=== PATIENT | male | born 1990 | race Hispanic/Latino ===

== ENCOUNTER 2020-04-08 15:00 | Outpatient (RCR) | payer BC, SELFPAY ==
--- NOTE | 2020-01-24 13:48 | PTOPEVAL ---
PHYSICAL THERAPY EVALUATION AND PLAN OF CARE Thank you for referring Mohinder Rasmussen to [facility].? The patient is scheduled to be seen for therapy? 1x/week for 4-8 weeks. Please review, sign, date and return this plan of care WILBUR. I agree with and certify that the following plan of care is medically necessary. 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 States that there is a tightness and pulling in mid back on the right and then pain in left lower back and goes into the hip. reports greater severity of right side rib pain as time has gone on and left hip glute area is worsening. Notes he is able to pop his right hip but not the left, pops his neck and knuckles Self Report Pain Assessment Lower Spine, Lumbar Reported Pain Level 5 Pain Description Aching,Pressure,Pulling Pain Frequency Chronic,Continuous Lowest Pain Intensity 3 Greatest Pain Intensity 9 Other Pain Aggravating Factors general activity, nothing specific Pain Behaviors None Pain Relief Interventions Used By Medication Patient Pain Score Pain Score 5: Self Report Cervical and Lumbar ROM Lumbar ROM Lumbar Flexion (0-90) 60 Query Text:Active in Degrees Lumbar Extension (0-40) 15 Query Text:Active in Degrees Lateral Rotation Right (0-45) 30 Query Text:Active in Degrees Lateral Rotation Left (0-45) 15 Query Text:Active in Degrees Lumbar Comments return from flexion: thoracic spine abberent movement with left flexion right; extennsion: hinge at L4 Cervical and Lumbar Muscle Testing Lumbar Strength Upper Abdominal Strength 3+Fair+ Lower Abdominal Strength 3 Fair Lower Extremity Muscle Strength Testing General Lower Extremity Strength Gross Lower Extremity Strength right unilateral heel raises: x11
--- NOTE | 2020-02-08 15:03 | PCPTNOTE ---
Brijesh was able to be reached by phone call today to schedule appointments. Since we were unable to reach him until today, we will extend the plan of care an additional two weeks in order to complete 4 weeks of physical therapy treatment visits.
--- NOTE | 2020-02-26 13:15 | PCPTNOTE ---
Patient called & cancelled scheduled appointment this date due to not feeling well.
--- NOTE | 2020-03-11 17:00 | PTOPEVAL ---
PHYSICAL THERAPY PROGRESS REPORT Thank you for referring Mohinder Rasmussen to [facility] We will be continuing previously established plan to complete 8 weeks of physical therapy 1x/week. We have 4 more weeks. Please review, sign, date and return this plan of care WILBUR. I agree with and certify that the following plan of care is medically necessary. 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 States that there is a tightness and pulling in mid back on the right and then pain in left lower back and goes into the hip. reports greater severity of right side rib pain as time has gone on and left hip glute area is worsening. Notes he is able to pop his right hip but not the left, pops his neck and knuckles Self Report Pain Assessment Lower Spine, Lumbar Reported Pain Level 5 Pain Description Aching,Pressure,Pulling Pain Frequency Chronic,Continuous Lowest Pain Intensity 3 Greatest Pain Intensity 9 Other Pain Aggravating Factors general activity, nothing specific Pain Behaviors None Lumbar ROM Lumbar Flexion (0-90) 60 Query Text:Active in Degrees Lumbar Extension (0-40) 15 Query Text:Active in Degrees Lateral Rotation Right (0-45) 30 Query Text:Active in Degrees Lateral Rotation Left (0-45) 20 Query Text:Active in Degrees Lumbar Comments no aberrant movement noted with flexion this date; extension: hinge at L4 Lumbar Strength Upper Abdominal Strength 3+Fair+ Lower Abdominal Strength 3 Fair Hip Strength Right Hip Flexion Strength 5 Normal Hip Extension Strength 4 Good Hip Abduction Strength 4+ Good + Left Hip Flexion Strength 5 Normal Hip Extension Strength 4 Good Hip Abduction Strength 4 Good Knee Strength Bilateral Knee Flexion Strength 5 Normal Knee Extension Strength 5 Normal Knee Strength Comments right unilateral heel raises: 04/28 left unilateral heel raises: 12/27 Muscle Length Testing Piriformis w/Hip Flexion >90 D
--- NOTE | 2020-03-21 13:57 | PCPTNOTE ---
Patient called & cancelled scheduled appointment this date due to possible covid exposure.
--- NOTE | 2020-03-25 16:16 | PCPTNOTE ---
Patient called & cancelled scheduled appointment for 03/26/2020 due to COVID quarantine.
--- NOTE | 2020-04-02 15:39 | PCPTNOTE ---
Patient did not show up for scheduled appointment this date. Called and reminded patient of attendance policy.
--- NOTE | 2020-04-08 15:25 | PCPTNOTE ---
Patient did not show up for scheduled appointment this date.
--- NOTE | 2020-04-08 15:25 | PCPTNOTE ---
PHYSICAL THERAPY DISCHARGE NOTE Attending Provider: Liborio Trotter MD Patient:Mohinder Rasmussen Date of :1990 Patient has not returned for any further treatments since 03/11/2020, therefore he will be discharged at this time due to poor attendance. Patient?s initial visit was on 01/24/2020 and had a total of 4 visits. We will be happy to work with him again in the future if he requires further therapy. The goals have been partially met. Thank you for referring this patient to [facility]. Please review, sign, date and return this discharge summary WILBUR. I have been updated about the patient's current status and I agree with discharge from the above service at this time. Referring Physician Date
== END 2020-04-09 13:06 | disposition home or self-care (01) ==
LOC: ANHPT 15:00
PROVIDERS: PCP Emergency Medicine; Visit Provider Emergency Medicine
DX: M54.5 Low back pain (principal)
CPT/HCPCS: 97110; 97140; 97161

== ENCOUNTER → 2020-05-29 16:40 | Outpatient (CLI) | payer BC, SELFPAY ==
--- NOTE | ~2020-05-29 | XR_ITS ---
EXAMINATION: XR lumbar spine 2-3V DATE: 05/29/2020 16:59 INDICATION: Low back pain TECHNIQUE: AP and lateral views of the lumbar spine were obtained. COMPARISON: 12/28/2008 FINDINGS: There are 2 mm of retrolisthesis of L5 on S1. The vertebral body heights and intervertebral disc spaces are maintained. There is no fracture. IMPRESSION: 1. Mild lumbar spondylosis without acute findings. Reviewed, dictated and finalized at location A. R [employer]W MEMBER
== END ==
PROVIDERS: PCP Emergency Medicine; Visit Provider Emergency Medicine
DX: M47.816 Spondylosis without myelopathy or radiculopathy, lumbar region (principal)
CPT/HCPCS: 72100

== ENCOUNTER 2021-06-03 15:19 | Outpatient (CLI) | payer OTHER, SELFPAY ==
--- NOTE | 2021-06-03 15:30 | ECG_ITS ---
Measurements Intervals [place] Rate: 118 P: 63 TX: 158 QRS: 11 QRSD: 98 T: 71 QT: 366 QTc: 514 Interpretive Statements SINUS TACHYCARDIA ST ELEVATION IN ANTOLAT/INF LEADS- CONSIDER EARLY REPOLARIZATION OR PERICARDITIS POOR R WAVE PROGRESSION, ANTERIOR LEADS BASELINE ARTIFACT- I, II, AVR, AVL, AVF ABNORMAL ECG Electronically Signed On 06-03-2021 16:21:08 COSMETOLOGY INSTRUCTOR by Heron Davidson D.O.
[2021-06-03 16:07] LABS: Alanine Aminotransferase 43 U/L (4-50); Albumin Level 5.3 g/dL (3.5-5.1); Alkaline Phosphatase 51 U/L (38-126); Amylase 74 U/L (30-110); Aspartate Amino Transferase 35 U/L (17-59); Bilirubin,Total 0.7 mg/dL (0.2-1.3); Lipase 165 U/L (23-300)
[2021-06-03 16:09] LABS: Hematocrit 43.1 % (42.0-52.0); Hemoglobin 14.5 g/dL (14.0-18.0)
[2021-06-03 16:10] LABS: Anion Gap 13 mmol/L (8-16); Blood Urea Nitrogen 23 mg/dL (9-20); Carbon Dioxide 25 mmol/L (22-30); Chloride 100 mmol/L (98-107); Estimated Glomerular Filt Rate 59; Glucose 144 mg/dL (65-110); Potassium 3.6 mmol/L (3.4-5.0); Sodium 138 mmol/L (137-145)
== END 2021-06-03 15:20 | disposition home or self-care (01) ==
LOC: ANHSURGERY 15:23
PROVIDERS: Anesthesiology; PCP Family Medicine; Visit Provider Surgery
DX: K80.20 Calculus of gallbladder without cholecystitis without obstruction (principal); E11.9 Type 2 diabetes mellitus without complications; E78.5 Hyperlipidemia, unspecified; I10 Essential (primary) hypertension; D64.9 Anemia, unspecified; Z01.818 Encounter for other preprocedural examination; R00.0 Tachycardia, unspecified
CPT/HCPCS: 36415; 80048; 80076; 82150; 83690; 85014; 85018; 86850; 86900; 86901; 93005

== ENCOUNTER 2021-08-01 11:36 | Outpatient (CLI) | payer OTHER, SELFPAY ==
--- NOTE | ~2021-08-01 | XR_ITS ---
XR lumbar spine min 4V DATE: 08/01/2021 12:16 INDICATION: Back pain TECHNIQUE: AP, lateral, coned lateral lumbosacral and bilateral oblique views COMPARISON: None FINDINGS: Normal alignment of the lumbar spine. No fracture or bone destruction, spondylolysis or spo ndylolisthesis. The included lower thoracic and lumbar pedicles are intact. Lumbar and lumbosacral in terspaces are well preserved. The sacroiliac joints are intact. IMPRESSION: Negative Reviewed, dictated and finalized at location A. IMPRESSION: Negative
--- NOTE | ~2021-08-01 | XR_ITS ---
EXAMINATION: HAND-NETTE ARTHRITIS 3+VIEWS DATE: 08/01/2021 12:16 INDICATION: Unspecified osteoarthritis at the bilateral hands. TECHNIQUE: Posteroanterior, lateral, and oblique views of the left and of the right hands as well as a ballcatchers view of both hands were obtained. COMPARISON: None. FINDINGS: Alignment is normal at the bilateral hands and wrists. No fracture. Joint spaces are normal with no e rosions or osteophytosis. Soft tissues are unremarkable. IMPRESSION: 1. Normal bilateral hand radiographs. Reviewed, dictated and finalized at location A.
--- NOTE | ~2021-08-01 | XR_ITS ---
XR sacroiliac joints min 3V DATE: 08/01/2021 12:16 INDICATION: Back pain TECHNIQUE: AP and bilateral oblique views COMPARISON: None FINDINGS: No fracture or dislocation. No erosive change or ankylosis. IMPRESSION: Negative Reviewed, dictated and finalized at Location A. Reviewed, dictated and finalized at location A. IMPRESSION: Negative
== END 2021-08-01 11:37 | disposition home or self-care (01) ==
PROVIDERS: PCP Family Medicine; Visit Provider Internal Medicine
DX: M19.90 Unspecified osteoarthritis, unspecified site (principal)
CPT/HCPCS: 72110; 72202; 73130

== ENCOUNTER 2021-08-10 09:33 | Outpatient (CLI) | payer OTHER, SELFPAY ==
--- NOTE | ~2021-08-10 | MR_ITS ---
EXAMINATION: MR sacroiliac jts wo/w con DATE: 08/10/2021 11:18 INDICATION: Unspecified osteoarthritis, unspecified site. Low back pain. TECHNIQUE: Magnetic resonance imaging (MRI) of the sacroiliac joints was performed without and with 1 9 mL MultiHance intravenous contrast. Sequences included sagittal PD-weighted FS FSE, coronal oblique T1-weighted FSE, T2-weighted FS FSE, and T2-weighted FSE, axial T1-weighted FSE, T1-weighted FS FSE, and T2-weighted FS FSE, and postcontrast axial and coronal oblique T1-weighted FS FSE. COMPARISON: Sacroiliac joint radiographs 08/01/2021 FINDINGS: Bone alignment is normal. No fracture. There is mild osteoarthritis of the sacroiliac joint s including marginal osteophytes. IMPRESSION: 1. Mild osteoarthritis of the sacroiliac joints. No evidence of inflammatory arthropathy. Reviewed, dictated and finalized at location E. IMPRESSION: 1. Mild osteoarthritis of the sacroiliac joints. No evidence of inflammatory ar thropathy.
--- NOTE | ~2021-08-10 | MR_ITS ---
EXAMINATION: MR lumbar spine wo/w con DATE: 08/10/2021 11:19 INDICATION: Unspecified osteoarthritis, unspecified site. Low back pain. TECHNIQUE: Magnetic resonance imaging (MRI) of the lumbar spine was performed without and with 19 mL MultiHance intravenous contrast. Sequences included sagittal T2-weighted FSE, sagittal T2-weighted FS FSE, and sagittal and axial T1-weighted FSE. Postcontrast sequences included axial T2-weighted FSE a nd axial and sagittal T1-weighted FS FSE. COMPARISON: Lumbar spine radiographs 08/01/2021 FINDINGS: Bone alignment is normal. Vertebral body heights are normal. There is mildly decreased disc height at L5-S1. The distal spinal cord signal intensity is normal. The conus medullaris is at T12-L 1. The following disc levels are specifically discussed: L1-L2: The disc does not extend beyond the endplate margin. There is mild bilateral facet joint osteo arthritis. There is no neural foraminal stenosis. There is no central canal stenosis. L2-L3: The disc does not extend beyond the endplate margin. There is mild left facet joint osteoarthr itis. There is no neural foraminal stenosis. There is no central canal stenosis. L3-L4: The disc does not extend beyond the endplate margin. There is mild bilateral facet joint osteo arthritis. There is no neural foraminal stenosis. There is no central canal stenosis. L4-L5: The disc does not extend beyond the endplate margin. There is mild bilateral facet joint osteo arthritis. There is no neural foraminal stenosis. There is no central canal stenosis. L5-S1: The disc is bulging and has an annular fissure. There is mild bilateral facet joint osteoarthr itis. There is mild bilateral neural foraminal stenosis. There is mild central canal stenosis. IMPRESSION: 1. Mild lumbar spondylosis. Reviewed, dictated and finalized at location E. IMPRESSION: 1. Mild lumbar spondylosis.
[2021-08-10 10:14] LABS: Estimated Glomerular Filt Rate 59
== END 2021-08-10 09:34 | disposition home or self-care (01) ==
LOC: ANHIMG 09:40
PROVIDERS: PCP Family Medicine; Visit Provider Internal Medicine
DX: M19.90 Unspecified osteoarthritis, unspecified site (principal); M47.896 Other spondylosis, lumbar region; M53.3 Sacrococcygeal disorders, not elsewhere classified
CPT/HCPCS: 72158; 72197; A9577

== ENCOUNTER 2022-09-18 14:11 | Emergency (ER) | payer OTHER, SELFPAY ==
--- NOTE | ~2022-09-18 | CT_ITS ---
EXAMINATION: CT abdomen pelvis w con DATE: 09/18/2022 16:48 INDICATION: Right abdominal pain. Nausea. TECHNIQUE: Computed tomography (CT) of the abdomen and pelvis was performed with 100 mL Omnipaque 350 intravenous contrast. Automated exposure control and iterative reconstruction technique were employe d. The dose-length product was 742.72 mGy-cm. COMPARISON: None. FINDINGS: The visualized portions of the lung bases demonstrate minimal atelectasis. No pleural effus ion. The heart size is normal. No pericardial effusion. The liver, gallbladder, spleen, adrenal gland s, and kidneys are normal. There is fat stranding around the pancreas, consistent with acute intersti tial pancreatitis. The pancreas enhances throughout. There are no dilated loops of bowel. The appendi x is normal. There are no pathologically enlarged lymph nodes. There is no free intraperitoneal fluid . There is mild subcutaneous fat stranding in right anterior abdominal wall, consistent with inflamma tion. There is mild thoracic and lumbar spondylosis. IMPRESSION: 1. Acute interstitial pancreatitis. Reviewed, dictated and finalized at location E.
[2022-09-18 14:13] VITALS: BP 137/92; PULSE 110; RESP 15; TEMP 36.7; O2SAT 100
[2022-09-18 14:38] LABS: Appearance Urine Clear (Clear); Bacteria Urine None Seen /hpf; Bilirubin Urine Negative (Negative); Blood Urine Negative (Negative); Color Urine Yellow (Yellow); Glucose Urine UA 3+ mg/dL (Negative); Ketones Urine 3+ mg/dL (Negative); Leukocyte Esterase Ur Negative LEU/UL (Negative); Nitrate Urine Negative (Negative); Non Pathogenic Casts 0-2; Protein Urine Trace mg/dL (Negative); RBC Urine 0-2 /hpf (0-2); Squamous Epithelial Cell Urine None seen /hpf (Few); Urobilinogen Urine 0.2 mg/dL (<2.0); WBC Urine 0-5 /hpf
[2022-09-18 14:47] LABS: Specific Grav Ur 1.044 (1.001-1.035)
[2022-09-18 14:48] LABS: Add Urine Microscopic? YES
--- NOTE | 2022-09-18 15:17 | ED.ABDPAIN ---
HPI - Abdominal Pain General Chief Complaint: Abdominal Pain Stated Complaint: abd pain Time Seen by Provider: 09/18/22 14:44 History of Present Illness HPI narrative: 32-year-old male with a history of diabetes, hypertension, dyslipidemia, depression and anxiety, hypothyroidism presents to the emergency room for evaluation of right upper quadrant abdominal pain began this morning. States pain is associated with couple of episodes of nonbilious nonbloody emesis, abdominal bloating, frequent flatulence and belching. Denies diarrhea or constipation. Patient states that he has a history of gallstones and pancreatitis. States is not engaged in drinking alcohol in almost 3 months. Related Data Home Medications Medication Instructions Recorded Confirmed fenofibrate micronized 134 mg 134 mg PO DAILY 04/17/19 09/04/21 capsule metformin 500 mg tablet 1,000 mg PO BID 04/17/19 09/04/21 diclofenac sodium 100 mg 100 mg PO DAILY 04/09/21 09/04/21 tablet,extended release 24 hr levothyroxine 50 mcg capsule 50 mcg PO DAILY 04/09/21 09/04/21 liraglutide 0.6 mg/0.1 mL (18 mg/3 0.6 mg subcut DAILY 04/09/21 09/04/21 mL) subcutaneous pen injector (Victoza 2-Sahvin) rosuvastatin 40 mg tablet 40 mg PO DAILY 04/09/21 09/04/21 alprazolam 0.5 mg tablet 0.5 mg PO BID PRN Anxiety 06/02/21 09/04/21 dextroamphetamine-amphetamine 20 20 mg PO BID 06/02/21 09/04/21 mg tablet (Adderall) ferrous sulfate 325 mg (65 mg 325 mg PO DAILY 06/02/21 09/04/21 iron) tablet irbesartan 150 mg tablet 150 mg PO DAILY 06/02/21 09/04/21 multivitamin 1 tablet PO DAILY 06/02/21 09/04/21 fluoxetine 20 mg capsule (Prozac) 20 mg PO DAILY 08/01/21 09/04/21 rosuvastatin 20 mg tablet (Crestor) 20 mg PO DAILY 08/01/21 09/04/21 trazodone 100 mg tablet 100 mg PO QHS PRN 08/01/21 09/04/21 Allergies Allergy/AdvReac Type Severity Reaction Status Date / Time No Known Allergies Allergy Verified 09/18/22 14:46 Review of Systems Review of Systems: CONSTITUTIONAL: Denies fever, chills, or sweats. EYES: Denies visual changes, redness, or discharge. ENT: Denies rhinorrhea, congestion, sore throat, or otalgia. CARDIOVASCULAR: Denies chest pain, palpitations, or edema. RESPIRATORY: Denies cough or dyspnea. GASTROINTESTINAL: Per HPI GENITOURINARY: Denies dysuria or hematuria. SKIN: Denies rash or itching. MUSCULOSKELETAL: Denies back pain, joint pain, or myalgia. NEUROLOGIC: Denies headache, numbness, dizziness, or weakness. PSYCHIATRIC: Denies anxiety or depression. [facility] Past Medical History Medical History Abnormal immunological finding in serum Degenerative joint disease (DJD) of lumbar spine Diabetes High cholesterol Hypertension Hypothyroid Inflammatory arthritis (~2005) Surgical History Surgical History H/O Achilles tendon repair History of surgical removal of ganglion cyst [place] teeth extracted Family History Family History Grandparent Diabetes mellitus Social History Social History Smoking status: Never smoker Alcohol intake: current Drinks per week: 4 Substance use: current Substance use type: marijuana Living arrangements: alone Occupation/Education: occupation 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 HEAD: Normocephalic, atraumatic. EYES: Conjunctivae normal, PERRLA and EOMI. CHEST: Clear to auscultation. No respiratory distress. No wheezes rales or rhonchi. HEART: Regular rate and rhythm. No murmur heard. Normal peripheral pulses. ABDOMEN: Soft, nontender, nondistended, normal active bowel s
[2022-09-18 15:18] LABS: Basophils Absolute Auto 0.1 K/mm3 (0.0-0.1); Basophils Percent Auto 0.7 % (0.2-1.2); Eosinophils Absolute Auto 0.6 K/mm3 (0-0.3); Eosinophils Percent Auto 6.2 % (0-4.4); Hematocrit 42.4 % (42.0-52.0); Hemoglobin 14.3 g/dL (14.0-18.0); Immature Granulocyte Absolute 0.03 K/mm3 (0.00-0.031); Immature Granulocyte Percent A 0.3 % (0-0.5); Lymphocytes Absolute Auto 1.43 K/mm3 (0.9-3.2); Lymphocytes Percent Auto 14.1 % (18.3-44.2); Mean Corpuscular HGB Conc 33.7 g/dl (32-36); Mean Corpuscular Hemoglobin 25.5 pg (26-34); Mean Corpuscular Volume 75.6 fl (80-100); Mean Platelet Volume 9.2 fl (7.4-10.4); Monocytes Absolute Auto 0.9 K/mm3 (0.1-0.6); Monocytes Percent Auto 9.2 % (2.6-8.5); Neutrophils Absolute Auto 7.1 K/mm3 (1.3-6.7); Neutrophils Percent Auto 69.5 % (45.5-73.1); Nucleated Red Blood Cells Absolute Auto 0.1 K/mm3 (0.0-0.012); Nucleated Red Blood Cells Perc 0.6 % (0.0-0.2); Platelet Count Result 317 k/mm3 (150-375); Red Blood Count 5.61 M/mm3 (4.6-6.20); Red Cell Distribution Width 13.2 % (11.5-14.5); White Blood Count 10.2 K/mm3 (4.5-10.0)
[2022-09-18] MEDS: DICYCLOMINE HCL INJ 20 MG/2 ML VIAL IM (15:34)
[2022-09-18] MEDS: SODIUM CHLORIDE 0.9% IV 1,000 ML 999 ML IV CONT ×2 (15:34→17:13)
[2022-09-18] MEDS: ONDANSETRON INJ 4 MG/2 ML VIAL IV PUSH (15:34)
[2022-09-18 16:40] LABS: Estimated CRCL calculation 312 ml/min; Estimated Glomerular Filt Rate > 60
[2022-09-18 16:54] LABS: Alanine Aminotransferase 21 U/L (6-50); Albumin Level 3.9 g/dL (3.5-5.1); Alkaline Phosphatase 52 U/L (38-126); Anion Gap 14 mmol/L (8-16); Aspartate Amino Transferase 36 U/L (17-59); Blood Urea Nitrogen 12 mg/dL (9-20); Calcium 8.2 mg/dL (8.4-10.2); Carbon Dioxide 20 mmol/L (22-30); Chloride 99 mmol/L (98-107); Estimated CRCL calculation 131 ml/min; Estimated Glomerular Filt Rate > 60; Glucose 257 mg/dL (65-110); Lipase 616 U/L (23-300); Potassium 4.9 mmol/L (3.4-5.0); Sodium 133 mmol/L (137-145)
[2022-09-18] MEDS: fentaNYL CITRATE INJ (*CRX) 100 MCG/2 ML VIAL 50 MCG IV PUSH (17:13)
== END 2022-09-18 18:01 | disposition home or self-care (01) ==
PROVIDERS: Emergency Medicine; Emergency Provider Nurse Practitioner Family; PCP Family Medicine
DX: K85.00 Idiopathic acute pancreatitis without necrosis or infection (principal); I10 Essential (primary) hypertension; E11.9 Type 2 diabetes mellitus without complications; E78.5 Hyperlipidemia, unspecified; E03.9 Hypothyroidism, unspecified; M47.816 Spondylosis without myelopathy or radiculopathy, lumbar region; M19.90 Unspecified osteoarthritis, unspecified site; F32.A Depression, unspecified; F41.9 Anxiety disorder, unspecified; Z79.84 Long term (current) use of oral hypoglycemic drugs
CPT/HCPCS: 36415; 74177; 80053; 81001; 83690; 85025; 96361; 96372; 96374; 96375; 99284; J0500; J2405; J3010; J7030; Q9967

== ENCOUNTER 2024-11-29 18:53 | Emergency (ER) | payer OTHER, SELFPAY ==
[2024-11-29 19:03] VITALS: BP 130/78; PULSE 92; RESP 16; TEMP 36.6; O2SAT 100
--- NOTE | 2024-11-29 19:08 | ED_ITS ---
HPI - General Adult General Chief complaint: Skin/Abscess/Foreign Body Stated complaint: Rash Source: patient Mode of arrival: ambulatory Limitations: no limitations History of Present Illness HPI narrative: Pt is a 34 y/o presenting with c/o pruritic rash. Pt reports pruritic rash initially to R. ankle 1 week ago, has since noticed same rash to alejandra. lower extremities, alejandra. upper extremities. Reports suspected contact with poison m[place] while at dog park. Does have several dogs who sleep with him. He has not given his dogs a bath since onset, he has not washed his bedding since onset. No similar rash among household members. No new skin hygiene products, foods, medications, recent travel. No additional complaints. Related Data Home Medications ?Medication ?Instructions ?Recorded ?Confirmed ?Last Taken ?Type fenofibrate micronized 134 mg 134 mg PO DAILY 04/17/19 09/04/21 Unknown History capsule metformin 500 mg tablet 1,000 mg PO BID 04/17/19 09/04/21 Unknown History diclofenac sodium 100 mg 100 mg PO DAILY 04/09/21 09/04/21 Unknown History tablet,extended release 24 hr levothyroxine 50 mcg capsule 50 mcg PO DAILY 04/09/21 09/04/21 Unknown History liraglutide 0.6 mg/0.1 mL (18 mg/3 0.6 mg subcut DAILY 04/09/21 09/04/21 Unknown History mL) subcutaneous pen injector (Victoza 2-Ashvin) rosuvastatin 40 mg tablet 40 mg PO DAILY 04/09/21 09/04/21 Unknown History alprazolam 0.5 mg tablet 0.5 mg PO BID PRN Anxiety 06/02/21 09/04/21 Unknown History dextroamphetamine-amphetamine 20 20 mg PO BID 06/02/21 09/04/21 Unknown History mg tablet (Adderall) ferrous sulfate 325 mg (65 mg 325 mg PO DAILY 06/02/21 09/04/21 Unknown History iron) tablet irbesartan 150 mg tablet 150 mg PO DAILY 06/02/21 09/04/21 Unknown History multivitamin 1 tablet PO DAILY 06/02/21 09/04/21 Unknown History fluoxetine 20 mg capsule (Prozac) 20 mg PO DAILY 08/01/21 09/04/21 Unknown History rosuvastatin 20 mg tablet (Crestor) 20 mg PO DAILY 08/01/21 09/04/21 Unknown History trazodone 100 mg tablet 100 mg PO QHS PRN 08/01/21 09/04/21 Unknown History Allergies Allergy/AdvReac Type Severity Reaction Status Date / Time No Known Allergies Allergy Verified 09/18/22 14:46 Review of Systems Review of Systems: CONSTITUTIONAL: Denies body aches, fever, chills, or sweats. EYES: Denies visual changes, redness, or discharge. ENT: Denies rhinorrhea, congestion, sore throat, or otalgia. CARDIOVASCULAR: Denies chest pain, palpitations, or edema. RESPIRATORY: Denies cough or dyspnea. GASTROINTESTINAL: Denies abdominal pain, nausea, vomiting, or diarrhea. GENITOURINARY: Denies dysuria or hematuria. SKIN: Reports pruritic rash MUSCULOSKELETAL: Denies back pain, joint pain, or myalgia. NEUROLOGIC: Denies headache, numbness, tingling, or weakness. PSYCH: Denies depression or anxiety. 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) Hypertension Hypothyroid High cholesterol Diabetes Surgical History Surgical History History of surgical removal of ganglion cyst H/O Achilles tendon repair [place] teeth extracted Family History Family History Grandparent Diabetes mellitus Social History Social History Smoking status: Never smoker Alcohol intake: current Drinks per week: 4 Substance use: current Substance use type: marijuana Living arrangements: alone Occupation/Education: occupation 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 HEAD: Normocephalic, atraumatic. EYES: EOMI. No redness or drainage. Conjunctivae normal. ENT: Mucous membranes pink and moist. NECK: Normal AROM. Supple. CHEST: No respiratory distress. HEART: Regular rate Normal peripheral pulses. EXTREMITIES: Normal range of motion. No edema. SKIN: Warm, dry. Erythematous, papulovesicular eruption noted to alejandra. lower legs, alejandra. upper extremities--hands and feet spared. no evidence of secondary bacterial skin infection. Capillary refill normal. Normal skin turgor. NEURO: No focal deficits. Alert and oriented x3. Gait steady. PSYCH: Normal affect. No signs of depression or anxiety. Course Course Level of Care: Express Care Visit Vital Signs Vital signs: Vital Signs Temperature 97.8 F 11/29/24 19:03 Pulse Rate 92 11/29/24 19:03 Respiratory Rate 16 11/29/24 19:03 Blood Pressure 130/78 11/29/24 19:03 Pulse Oximetry 100 11/29/24 19:03 Oxygen Delivery Room Air 11/29/24 19:03 Temperature 97.8 F 11/29/24 19:03 Pulse Rate 92 11/29/24 19:03 Respiratory Rate 16 11/29/24 19:03 Blood Pressure 130/78 11/29/24 19:03 Pulse Oximetry 100 11/29/24 19:03 Oxygen Delivery Room Air 11/29/24 19:03 Medical Decision Making Vital Signs Vital Signs: Vital Signs Temperature 97.8 F 11/29/24 19:03 Pulse Rate 92 11/29/24 19:03 Respiratory Rate 16 11/29/24 19:03 Blood Pressure 130/78 11/29/24 19:03 Pulse Oximetry 100 11/29/24 19:03 Oxygen Delivery Room Air 11/29/24 19:03 Temperature 97.8 F 11/29/24 19:03 Pulse Rate 92 11/29/24 19:03 Respiratory Rate 16 11/29/24 19:03 Blood Pressure 130/78 11/29/24 19:03 Pulse Oximetry 100 11/29/24 19:03 Oxygen Delivery Room Air 11/29/24 19:03 Discharge Plan Discharge Clinical Impression: Contact dermatitis Qualifiers: Contact dermatitis type: allergic Contact dermatitis trigger: non-food plants Qualified Code(s): L23.7 - Allergic contact dermatitis due to plants, except food Patient Disposition: Home Condition: Stable Instructions: Micky Hair (ED) Additional Instructions: Monitor your blood sugar closely while taking the prednisone. Go straight to ER should your symptoms become worse or should any new symptoms develop Patient Language: [place] Prescriptions: New prednisone 20 mg tablet 20 mg PO DAILY Qty: 18 0RF Rx Instructions: take 3 tabs x 3 days then 2 tabs x 3 days then 1 tab x 3 days No Action fenofibrate micronized 134 mg capsule 134 mg PO DAILY metformin 500 mg tablet 1,000 mg PO BID fluoxetine [Prozac] 20 mg capsule 20 mg PO DAILY trazodone 100 mg tablet 100 mg PO QHS PRN rosuvastatin [Crestor] 20 mg tablet 20 mg PO DAILY diclofenac sodium 100 mg tablet extended release 24 hr 100 mg PO DAILY Victoza 2-Ashvin 0.6 mg/0.1 mL (18 mg/3 mL) pen injector 0.6 mg subcut DAILY levothyroxine 50 mcg capsule 50 mcg PO DAILY rosuvastatin 40 mg tablet 40 mg PO DAILY multivitamin Tablet 1 tablet PO DAILY alprazolam 0.5 mg Tablet 0.5 mg PO BID PRN (Reason: Anxiety) ferrous sulfate 325 mg (65 mg iron) Tablet 325 mg PO DAILY dextroamphetamine-amphetamine [Adderall] 20 mg Tablet 20 mg PO BID irbesartan 150 mg Tablet 150 mg PO DAILY ondansetron 4 mg tablet,disintegrating 4 mg PO Q8H Qty: 20 0RF hydrocodone-acetaminophen 5-325 mg tablet 1 tablet PO Q6H PRN (Reason: pain) Qty: 20 0RF Follow-up/Referrals: Tong,Felicitas Bauer NP [Primary Care Provider] - 11/29/24 Time of Disposition: 19:30
== END 2024-11-29 19:50 | disposition home or self-care (01) ==
PROVIDERS: Emergency Provider Registered Nurse; PCP Nurse Practitioner Family
DX: L23.7 Allergic contact dermatitis due to plants, except food (principal); I10 Essential (primary) hypertension; E11.9 Type 2 diabetes mellitus without complications; Z79.84 Long term (current) use of oral hypoglycemic drugs; E78.00 Pure hypercholesterolemia, unspecified; E03.9 Hypothyroidism, unspecified; M19.90 Unspecified osteoarthritis, unspecified site; M47.816 Spondylosis without myelopathy or radiculopathy, lumbar region
CPT/HCPCS: 99213; G0463

== ENCOUNTER 2025-02-19 06:54 | Outpatient (CLI) | payer OTHER, SELFPAY ==
--- NOTE | ~2025-02-19 | MR_ITS ---
EXAMINATION: MR lumbar spine wo con DATE: 02/19/2025 07:22 INDICATION: Other low back pain. Myalgia. TECHNIQUE: Magnetic resonance imaging (MRI) of the lumbar spine was performed without intravenous contrast. Sequences included sagittal T2-weighted FSE, sagittal T2-weighted FS FSE, sagittal T1-weighted FSE, and axial T2-weighted FSE. COMPARISON: Lumbar spine MRI 08/10/2021 FINDINGS: Alignment is normal. There is mild chronic anterior wedging of T12 vertebral body, likely physiologic. There is mildly decreased disc height at L5- S1. The distal spinal cord signal intensity is normal. The conus medullaris is at L1. The following disc levels are specifically discussed: L1-L2: The disc does not extend beyond the endplate margin. There is mild bilateral facet joint osteoarthritis. There is no neural foraminal stenosis. There is no central canal stenosis. L2-L3: The disc does not extend beyond the endplate margin. There is mild bilateral facet joint osteoarthritis. There is no neural foraminal stenosis. There is no central canal stenosis. L3-L4: The disc does not extend beyond the endplate margin. There is mild bilateral facet joint osteoarthritis. There is no neural foraminal stenosis. There is no central canal stenosis. L4-L5: The disc does not extend beyond the endplate margin. There is mild right and moderate left facet joint osteoarthritis. There is no neural foraminal stenosis. There is no central canal stenosis. L5-S1: The disc is bulging and has an annular fissure. There is moderate bilateral facet joint osteoarthritis. There is mild right and moderate left neural foraminal stenosis. There is mild central canal stenosis. IMPRESSION: 1. Moderate left neural foraminal stenosis at L5-S1. Otherwise mild lumbar spondylosis. Reviewed, dictated and finalized at location E. IMPRESSION: 1. Moderate left neural foraminal stenosis at L5-S1. Otherwise mild lumbar spon dylosis.
--- OUTSIDE RECORDS SUMMARY | 2025-02-19 06:57 | XMS_ITS | Encounter Summary ---
Author Organization [facility] Address [address] [place] [address] Phone Care Team Providers Care Preparation Supervisor Canning Name Role Phone Liborio Trotter Primary Care Provider [phone] Encounter Details Date Type Department Care Team (Late st Contact Info) Description 04/23/2021 Telephone [facility] [address] [place] [address] Gavin Mayer MD [address] [place] [address] Social History Tobacco Use Types Packs/Day Years Used Date Smoking Tobacco: Never Smokeless Tobacco: Never Alcohol Use Standard Drinks/Week Comments Not Currently 0 (1 standard drink = 0.6 oz pur e alcohol) 'quit recently' PHQ-2 Answer Date Recorded Total Score - Questions 1-9 0 11/0 09/2020 Education Answer Date Recorded What is the highest level of school you have completed or the highest degree you have received? Master's degree (e.g., MA, MS, Nima, MEd, TECHNICAL PROJECT LEAD, JACKELYN) 05/16/2020 Sex and Gender Information Value Date Recorded Sex Assigned at Not on file Legal Sex Male 1:08 PM PACKAGE HANDLER Gender Identity Not on file Sexual Orientation Not on file documented as of this encounter Miscellaneous Notes * Telephone Encounter - Chasity Kennedy - 04/23/2021 2:13 PM CST PATIENT CALLED AND HE TESTED POSITIVE FOR COVID LAST NIGHT. PATIENT IS RESCHEDULED FROM 04/25 TO 05/16/21. AGE HANDLER documented in this encounter Plan of Treatment Not on file documented as of this encounter Visit Diagnoses Not on filedocumented in this encounter Additional Health Concerns Assessment Noted Time PHQ-9 Depression Total Score: 0 03/14/20 21 9:12 AM CDT documented as of this encounter Care Teams Preparation Supervisor Canning Relationship Specialty Start Date End Date Liborio Trotter [address] [place] [place] [address] PCP - General Family Medicine 06/16/19 documented as of this encounter
--- OUTSIDE RECORDS SUMMARY | 2025-02-19 06:58 | XMS_ITS | Encounter Summary ---
Author Organization [facility] Address [address] [place] [address] Phone Care Team Providers Care Theatrical Dresser Name Role Phone Liborio Trottre Primary Care Provider [phone] Encounter Details Date Type Department Care Team (Late st Contact Info) Description 08/15/2021 Telephone [facility] [address] [place] [address] Gavin Mayer MD [address] [place] [address] Social History Tobacco Use Types Packs/Day Years Used Date Smoking Tobacco: Never Smokeless Tobacco: Never Alcohol Use Standard Drinks/Week Comments Not Currently 0 (1 standard drink = 0.6 oz pur e alcohol) 'quit recently' PHQ-2 Answer Date Recorded Total Score - Questions 1-9 12 11/2021 Education Answer Date Recorded What is the highest level of school you have completed or the highest degree you have received? Master's degree (e.g., MA, MS, Nima, MEd, PULP AND PAPER TESTER, JACKELYN) 05/16/2020 Sex and Gender Information Value Date Recorded Sex Assigned at Not on file Legal Sex Male 1:08 PM EMPLOYMENT ADVISOR Gender Identity Not on file Sexual Orientation Not on file documented as of this encounter Miscellaneous Notes * Telephone Encounter - Chelsea Heller - 08/15/2021 9:59 AM CDT PT HAD AN OFFICE VISIT SCHEDULED, NO SHOW, CALLED PT, LEFT V/M documented in this encounter Plan of Treatment Not on file documented as of this encounter Visit Diagnoses Not on filedocumented in this encounter Additional Health Concerns Assessment Noted Time PHQ-9 Depression Total Score: 12 022 8:53 AM EMPLOYMENT ADVISOR documented as of this encounter Care Teams Theatrical Dresser Relationship Specialty Start Date End Date Liborio Trotter [address] [place] [address] PCP - General Family Medicine 06/16/19 documented as of this encounter
--- OUTSIDE RECORDS SUMMARY | 2025-02-19 06:58 | XMS_ITS | Encounter Summary ---
Author Organization [facility] Address [address] [place] [address] Care Team Providers Care Tissue Recovery Technician Name Role Phone Liborio Trotter MD Primary Care Provider [phone] Encounter Details Date Type Department Care Team (Late st Contact Info) Description 10/16/2021 Lab Requisition [facility] Lab [address] [place] [id number] Chao Farias MD [address] [place] [address] Social History Tobacco Use Types Packs/Day Years Used Date Smoking Tobacco: Never Assessed Sex and Gender Information Value Date Recorded Sex Assigned at Not on file Legal Sex Male 1:30 PM CDT Gender Identity Not on file Sexual Orientation Not on file documented as of this encounter Plan of Treatment Not on file documented as of this encounter Procedures Procedure Name Priority Date/Time Associated Diagnosis Comments DERMATOPATHOLOGY Routine 10/15/2021 12:0 0 AM CDT documented in this encounter Results * DERMATOPATHOLOGY (10/15/2021 12:00 AM CDT) Case Report Dermatopathology Report Case: [id number] Authorizing Provider: Chao Farias MD Collected: 10/15/2021 12:00 AM Ordering Location: [facility] Received: 10/16/2021 01:38 PM Pathologist: Mae Braun MD Specimen: Skin, distal doral penis shaft just left of midline 11:03 AM CDT DERMATOPATHOLOGY LABORATORY Amended Report At the request of the clinician, add R/O Dys nevus to clinical history. 11:03 AM CDT DERMATOPATHOLOGY LABORATORY Final Diagnosis Specimen A. SKIN, distal doral penis shaft just left of midline: MUCOSAL LENTIGO (LABIAL MELANOTIC MACULE) (L81.4) 2 11:03 AM CDT DERMATOPATHOLOGY LABORATORY Amendment electronically signed by Mae Braun MD on 10/20/2021 at 1103 CDT at 1508 CDT Clinical History R/O dys nevus 2 11:03 AM CDT DERMATOPATHOLOGY LABORATORY Gross Description Specimen A: Received is one formalin filled container labeled with the patient's name and designated distal doral penis shaft just left of midline. The specimen consists of a shave biopsy measuring [id number]. Jar 0. 2 11:03 AM CDT DERMATOPATHOLOGY LABORATORY Microscopic Description Specimen A. SKIN, distal doral penis shaft just left of midline: The specimen is taken from a mucocutaneous surface and shows acanthosis and prominent pigmentation in the basal layer. The keratinocytes are mature and there is a minimal increase in melanocytes. 2 11:03 AM CDT DERMATOPATHOLOGY LABORATORY Disclaimer An external and internal positive and negative controls are appropriate for the histochemical, immunohistochemical and immunofluorescence stain(s) in this case (if any), except where stated explicitly. The performance characteristics of the stain(s) cited in this report were developed and its performance characteristic determined by the Dermatopathology Laboratory at [facility], directed by Dr. Kami Schaeffer. These tests need not be, and therefore are not, approved by the [place] Food and Drug Administration. The tests are used for clinical purposes. Billing Codes Specimen Charges Stain Charges 76085 1 2 11:03 AM CDT DERMATOPATHOLOGY LABORATORY Embedded Images 2 11:03 AM CDT DERMATOPATHOLOGY LABORATORY Pathology/Cytolog y TISSUE SPECIMEN FROM SKIN / Unknown 10/15/2021 10/16/2021 1:38 PM CDT Chao Farias MD LAB - PATHOLOGY/CYTOLOGY ORD ERABLES Edited Result - Final DERMATOPATHOLOGY LABORATORY [facility] - Department of Dermatology [address], [address] Floor [address] [phone] documented in this encounter Visit Diagnoses Not on filedocumented in this encounter Care Teams Tissue Recovery Technician Relationship Specialty Start Date End Date Liborio Trotter MD PCP - General 10/16/21 documented as of this encounter
--- OUTSIDE RECORDS SUMMARY | 2025-02-19 06:58 | XMS_ITS | Clinical Summary ---
Author Organization [facility] Address [address] [place] [address] Care Team Providers Care Senior Corporate Strategy Manager Name Role Phone Gavin Mayer MD Primary Care Provider Social History Tobacco Use Types Packs/Day Years Used Date Smoking Tobacco: Never Assessed Sex and Gender Information Value Date Recorded Sex Assigned at Not on file Legal Sex Male 3:47 PM SYSTEMS TESTER Gender Identity Not on file Sexual Orientation Not on file Plan of Treatment Health Maintenance Due Date Last Done Comments Annual Physical 1992 Hepatitis C 09/05/2007 DTaP, Tdap and Td Vaccines ( 1 - Tdap) 2008 Hepatitis B Vaccines (1 of 3 - 19+ 3-dose series) 2008 HPV Vaccines (1 - 3-dose SCD M series) 2016 COVID-19 Vaccine ( - 2023-2 5 season) 2025 Influenza Adult (#1) 2025 Meningococcal B Vaccine Aged Out No l onger eligible based on patient's age to complete this topic Meningococcal Vaccine Aged Out No truong dioni eligible based on patient's age to complete this topic Pneumococcal Vaccine: Pediat rics (0 to 5 Years) and At-Risk Patients (6 to 49 Years) Aged Out No longer eligible b ased on patient's age to complete this topic RSV Immunizations Under 20 Months Aged Out No longer eligible based on patient's age to complete this topic Insurance [employer] [place] [id number] [facility] MEDICAID Care Teams Senior Corporate Strategy Manager Relationship Specialty [place] [address] [place] [address] PCP - General HEMATOLOGY/ONCOLOGY 05/15/20
--- OUTSIDE RECORDS SUMMARY | 2025-02-19 06:58 | XMS_ITS | Clinical Summary ---
Author Organization [facility] Address [address] [place] [address] Care Team Providers Care Chief Controller Name Role Phone Liborio Trottre MD Primary Care Provider [phone] Allergies No known active allergies Medications loratadine (CLARITIN) 10 mg tablet Take 10 mg by mouth daily. Active sertraline (ZOLOFT) 100 mg tablet Take 100 mg by mouth daily. Active dextroamphetami ne-amphetamine (ADDERALL) 20 mg tablet Take 20 mg by mouth 3 times daily . Active melatonin 5 mg Tablet Take by mouth nightly as needed. Active ONETOUCH VERIO Strip 1 x daily. 100 Each 3 10/12/2017 Active pravastatin (PRAVACHOL) 40 mg tablet Take 1 Tablet (40 mg) by mouth daily with supper. 90 Tablet 1 06/05/2019 Active levothyroxine 50 mcg tablet TAKE 1 TABLET BY MOUTH EVERY MORNING WITHOUT FOOD 90 Tablet 1 06/05/2019 Active fenofibrate micronized (LOFIBRA) 134 mg Capsule Take 1 Capsule (134 mg) by mouth daily. 90 Capsule 1 06/05/2019 Active lancets 33 gauge Use once daily to test blood sugar levels 100 Each 3 12/20/2019 Active metFORMIN (GLUCOPHAGE XR) 500 mg Extended Release 24 hour tablet TAKE 2 TABLETS BY MOUTH TWICE DAILY WITH MEALS 360 Tablet 01/22/2020 Active Active Problems Patient Care Coordination No te Formatting of this note migh t be different from the original. Jabari Siddiqui MD--Landfill Grader ([facility] @ ) Problem Noted Date Diagnosed Date Controlled type 2 diabetes m hans without complication, with long-term current use of insulin 07/15/2018 ESTELITA (obstructive sleep apnea) 03/14/2018 Hypothyroidism 09/01/2017 History of pancreatitis 07/20/2017 Obesity (BMI 30.0-34.9) 07/20/2017 Anxiety and depression 09/20/2016 ADHD (attention deficit hyperactivity disorder) 09/20/2016 Mixed hyperlipidemia Dietary counseling Resolved Problems Problem Noted Date Diagnosed Date Resolved Date Controlled type 2 diabetes m ellitus without complication, without long-term current use of insulin 10/12/2017 07/15/2018 Mixed hyperlipidemia 07/20/2017 019 Diabetic ketoacidosis withou t coma associated with type 2 diabetes mellitus 06/25/2017 07/20/2017 Hypertriglyceridemia 06/24/2017 018 New onset type 2 diabetes mellitus 06/24/2017 10/12/2017 Non-intractable vomiting with nausea 06/24/2017 07/20/2017 Leukocytosis (leucocytosis) 06/24/2017 07/20/2017 Obesity (BMI 35.0-39.9 without comorbidity) 05/19/2017 07/20/2017 Elevated BP without diagnosis of hypertension 05/19/19 18 07/20/2017 High risk medication use 02/09/2017 Mixed dyslipidemia 09/14/2016 8 Acute pancreatitis 8 Encounter for long-term (current) insulin use 10/12/2017 Immunizations Immunization Administration Dates Next Due Influenza Seasonal Unspecified Formulation IM Family History Medical History Relation Name Comments Hypertension Mother Fuchs' dystrophy Neg Hx Glaucoma Neg Hx Macular Degen Neg Hx Relation Name Status Comments Father Alive Mother Alive Social History Tobacco Use Types Packs/Day Years Used Date Smoking Tobacco: Never Smokeless Tobacco: Never Tobacco Cessation:Counseling Given: Yes Alcohol Use Standard Drinks/Week Comments Yes 0 (1 standard drink = 0.6 oz pur e alcohol) SOCIALLY Sex and Gender Information Value Date Recorded Sex Assigned at Not on file Legal Sex Male 5:16 PM ASSISTANT PROFESSOR OF FORESTRY Gender Identity Not on file Sexual Orientation Not on file Occupation Industry Job Start Date Job End Date [employer] Not on file Not on file Not on file Last Filed Vital Signs Vital Sign Reading Time Taken Comments Blood Pressure 122/70 06/05/2019 11:12 AM ASSISTANT PROFESSOR OF FORESTRY Pulse 76 06/05/2019 11:12 AM ASSISTANT PROFESSOR OF FORESTRY Temperature 36.3 C (97.4 F) 06/30/2017 8:30 AM ASSISTANT PROFESSOR OF FORESTRY Respiratory Rate 18 12/21/2017 2:43 PM CDT Oxygen Saturation 96% 12/21/2017 2:43 PM CDT RA Inhaled Oxygen Concentration - - Weight 101.2 kg (223 lb) 06/05/2019 11:12 AM ASSISTANT PROFESSOR OF FORESTRY Height 175.3 cm (5' 9) 06/05/2019 11:12 AM ASSISTANT PROFESSOR OF FORESTRY Body Mass Index 32.93 06/05/2019 11:12 AM ASSISTANT PROFESSOR OF FORESTRY Plan of Treatment Health Maintenance Due Date Last Done Comments DTAP/TDAP/TD VACCINES (1 - Tdap) 2008 HEPATITIS B VACCINES (1 of 3 - 19+ 3-dose series) 2008 HPV VACCINES (1 - 3-dose SCD M series) 2016 DIABETES ANNUAL RETINAL EXAM 11/05/2019, 11/04/2018, 11/04/2018, Additional history exists DIABETES MICROALBUMIN ANNUAL SCREEN 11/30/2019 11/29/2018 LDL CHOLESTEROL ANNUAL 11/30/2019 9, 07/12/2018, 03/10/2018, Additional history exists DIABETES HBA1C Q 6 MONTHS 12/01/20192019, 11/29/2018, 07/12/2018, Additional history exists DIABETES ANNUAL FOOT EXAM 06/05/20202019, 12/02/2018, 07/15/2018, Additional history exists INFLUENZA VACCINE (#1) 2024 05/24/2017 Medical Devices Implanted Type Area Braiding Machine Tender Device Identifier Shelf Expiration Date Model / Serial / Lot [place] Speedbridge Achilles [id number] - [id number] Implanted:Qty: 1 on 03/04/2017 by Francois Smith MD at [facility] [place] Left: Ankle [employer] [id number] 04/08/2018 [id number] / / [id number] Description:REQUISITION # [id number]. Procedures Procedure Name Priority Date/Time Associated Diagnosis Comments HEMOGLOBIN A1C Routine 06/02/2019 1:35 AM ASSISTANT PROFESSOR OF FORESTRY Controlled type 2 diabetes mellitus without complication, with long-term current use of insulin ([facility]) MICROALBUMIN/CREATI NINE RATIO, RANDOM UR Routine 11/29/2018 9:24 AM CDT Controlled type 2 diabetes mellitus without complication, with long-term current use of insulin ([facility]) LIPID PANEL Routine 11/29/2018 9:15 AM CDT Mixed hyperlipidemia from Last 3 Months or Most Recently Relevant to Health Maintenance Results * (ABNORMAL) HEMOGLOBIN A1C (06/02/2019 1:35 AM ASSISTANT PROFESSOR OF FORESTRY) HEMOGLOBIN A1C 6.1(H) <5.7 % of total Hgb G3 [facility] Comment: For someone without known diabetes, a hemoglobin A1c value between 5.7% and 6.4% is consistent with prediabetes and should be confirmed with a follow-up test. For someone with known diabetes, a value <7% indicates that their diabetes is well controlled. A1c targets should be individualized based on duration of diabetes, age, comorbid conditions, and other considerations. This assay result is consistent with an increased risk of diabetes. Currently, no consensus exists regarding use of hemoglobin A1c for diagnosis of diabetes for children. Test Performed at: [facility] [address] [place] [address] Catarino Bloom D.O., MPH Blood 06/02/2019 1:35 AM ASSISTANT PROFESSOR OF FORESTRY Kaylyn Hinkle MD CHEMISTRY ORDERABLES Final Result G3 [facility] [address] [place] [address] * MICROALBUMIN/CREATININE RATIO, RANDOM UR (11/29/2018 9:24 AM CDT) MICROALBUMIN, URINE <1.2 No Reference Range mg/dL 11/29/2018 11:12 AM CDT [employer] [facility] CREATININE, URINE 169.7 40.0 - 278.0 mg/dL 11/29/2018 11:12 AM T [employer] [facility] Comment: Reference Range varies with fluid intake and diet. MICROALBUMIN/C REAT RATIO, UR <7.1 <17.0 mg/g 11/29/2018 11:12 AM T [employer] [facility] Urine URINE SPECIMEN OBTAINED BY CLEAN CATCH PROCEDURE / Unknown Collection / Unknown 11/29/2018 9:24 AM CDT 11/29/2018 9:24 AM CDT [facility] - 11/29/2018 11:12 AM CDT Condition Microalbumin/Creat ratio Normal Males <17 Normal Females <25 Microalbuminuria Males 17-299 Microalbuminuria Females 25-299 Overt proteinuria >=300 Kaylyn Hinkle MD URINE ORDERABLES Aniyah l Result [facility] [email or web address] [facility] CLIA# [id number] [address] [facility] [address] * (ABNORMAL) LIPID PANEL (11/29/2018 9:15 AM CDT) CHOLESTEROL 163 <200 mg/dL 11/29/2018 11:16 AM T [facility] [email or web address] [facility] TRIGLYCERIDE 204(H) <150 mg/dL 11/29/2018 11:16 AM T [facility] [email or web address] [facility] HDL 35(L) 40 - 59 mg/dL 11/29/2018 11:16 AM T [facility] [email or web address] [facility] LDL CALCULATED 87 <100 mg/dL 11/29/2018 11:16 AM T [facility] [email or web address] [facility] NON-HDL CHOLESTEROL 128 <130 mg/dL 11/29/2018 11:16 AM T [facility] [email or web address] [facility] Blood Venipuncture / Unknown 11/29/2018 9:15 AM CDT 11/29/2018 9:15 AM CDT [employer] [facility] - 11/29/2018 11:16 AM CDT TOTAL CHOLESTEROL mg/dL Desirable <200 Borderline high 200-239 High >=240 TRIGLYCERIDES mg/dL Normal <150 Borderline high 150-199 High 200-499 Very high >=500 HDL CHOLESTEROL mg/dL Low <40 Normal 40-59 Desirable >=60 NON HDL CHOLESTEROL mg/dL Optimal <130 Near Optimal 130-159 Borderline High 160-189 Very High >=190 Calculated LDL mg/dL Optimal <100 Near Optimal 100-129 Borderline High 130-159 High 160-189 Very High >=190 ATPIII Guidelines Reference Ranges for Lipid Panels (NCEP/AMA) Kaylyn Hinkle MD CHEMISTRY ORDERABLES Final Result [facility]# [id number] [address] [place] [id number] from Last 3 Months or Most Recently Relevant to Health Maintenance Insurance [employer] (INTERNAL) [facility] [employer] Commercial [[id number] Advance Directives For more information, please contact: [phone] * Full Code (Latest Code Status on File) Date Activated Date Inactivated Comments 06/24/2017 9:02 PM 06/30/2017 3:23 PM * Full Code Date Activated Date Inactivated Comments 03/04/2017 2:31 PM 03/04/2017 10:00 PM * Full Code Date Activated Date Inactivated Comments 03/04/2017 2:28 PM 03/04/2017 2:31 PM * Full Code Date Activated Date Inactivated Comments 03/04/2017 1:14 PM 03/04/2017 2:28 PM Care Teams Chief Controller Relationship Specialty Start Date End Date Liborio Trotter MD [address] [place] [phone] PCP - General Family Practice 02/18/17
--- OUTSIDE RECORDS SUMMARY | 2025-02-19 06:58 | XMS_ITS | Clinical Summary ---
Author Organization [facility] Address [address], [facility] [address] [place] [address] Phone Care Team Providers Care Mural Artist Name Role Phone Liborio Trotter Primary Care Provider [phone] Allergies No known active allergies Medications amphetamine-dex troamphetamine (ADDERALL) 20 MG Tablet Take 20 mg by mouth. Active Fenofibrate Micronized 134 MG Capsule Take 134 mg by mouth. 06/05/2019 Active levothyroxine (SYNTHROID) 50 MCG Tablet TAKE 1 TABLET BY MOUTH EVERY MORNING WITHOUT FOOD 06/05/2019 Active metFORMIN (GLUCOPHAGE-XR) 500 MG TABLET SR 24 HR TAKE 2 TABLETS BY MOUTH TWICE DAILY WITH MEALS 01/22/2020 Active rosuvastatin (CRESTOR) 20 MG Tablet Take 20 mg by mouth daily. 04/26/2020 Active ALPRAZolam (Xanax) 0.5 MG Tablet Take 0.5 mg by mouth 2 times daily as needed. Active DULoxetine (CYMBALTA) [address] Particles TAKE 1 CAPSULE BY MOUTH EVERY DAY 12/31/2020 Active DULoxetine (CYMBALTA) [address] Particles Take 30 mg by mouth. 02/19/2021 Active diclofenac (VOLTAREN) 75 MG Tablet Delayed Response 02/19/2021 Active Atomoxetine HCl 80 MG Capsule 03/13/2021 Activ e irbesartan (AVAPRO) 150 MG Tablet Take 1 Tablet by mouth daily. 11/05/2020 Active Victoza 18 MG/3ML Solution Pen-injector 03/11/2021 Active traZODone (DESYREL) 100 MG Tablet 03/26/2021 Active Nebivolol HCl (BYSTOLIC PO) Take by mouth. Active ferrous sulfate 325 (65 Fe) MG Tablet TAKE 1 TABLET BY MOUTH EVERY DAY 90 Tablet 1 06/16/2021 Active Active Problems Problem Noted Date Diagnosed Date Thrombocytosis 05/16/2021 Microcytic anemia 05/16/2021 Family History Relation Name Status Comments Father Alive Mother [...] Master's degree (e.g., MA, MS, Nima, MEd, NAVAL AIRCREWMAN OPERATOR, JACKELYN) 05/16/2020 Sex and Gender Information Value Date Recorded Sex Assigned at Not on file Legal Sex Male 1:08 PM WRISTER Gender Identity Not on file Sexual Orientation Not on file Last Filed Vital Signs Vital Sign Reading Time Taken Comments Blood Pressure 122/82 05/16/2021 8:47 AM WRISTER Pulse 74 05/16/2021 8:47 AM WRISTER Temperature 36.3 C (97.3 F) 03/14/2021 9:09 AM CDT Respiratory Rate 18 03/14/2021 9:09 AM CDT Oxygen Saturation 98% 05/16/2021 8:47 AM WRISTER Inhaled Oxygen Concentration - - Weight 97.3 kg (214 lb 8 oz) 05/16/2021 8:47 AM WRISTER Height 177.8 cm (5' 10) 05/16/2021 8:47 AM WRISTER Body Mass Index 30.78 05/16/2021 8:47 AM WRISTER Plan of Treatment Health Maintenance Due Date Last Done Comments Hepatitis C Virus (HCV) Screening 1989 TdaP Immunization 1989 Hepatitis B Immunization (1 of 3 - 19+ 3-dose series) 2008 Human Papillomavirus (HPV) Immunization (1 - 3-dose SCDM series) 2016 Influenza Immunization (#1) 01/08/202502/07, 05/24/2017 SARS-COV-2 Immunization ( season) 2025 07/15/2020 Respiratory Syncytial Virus (RSV) Immunization (Adult) (1 - 1-dose 75+ series) 2064 Meningococcal Immunization (ACWY) Aged Out No longer eligible b ased on patient's age to complete this topic Pneumococcal Immunization Combined Aged Out No longer eligible b ased on patient's age to complete this topic Rotavirus Immunization Aged Out No lo nger eligible based on patient's age to complete this topic Insurance [facility] Care Teams Mural Artist Relationship Specialty Start Date End Date Liborio Trotter [address] [place] [address] PCP - General Family Medicine 06/16/19
--- OUTSIDE RECORDS SUMMARY | 2025-02-19 06:58 | XMS_ITS | Data Portability ---
Author Organization [place] [facility] [employer], Main Office Address [address] [place] [address] Assessment No assessment recorded. Plan of Treatment Reminders Order Date Submit Date Provider Last Modified By Organization Details Last Modified Time Details Appointments Follow Up 15 2024 09:15A Yani Fortune NP Not available Not available Not available Follow Up 15 2024 08:00A Yani Fortune NP Not available Not available Not available Lab None recorded. Referral pain managemen t referral - Please call patient to schedule an appointme nt. Thank you. 2024 025 [email or web address] [facility], [address], [place], [address], 01/29/2025 09:20:11 psychiatr ist referral - Please call patient to schedule an appointme nt. Thank you. 2023 024 [email or web address] [facility], [address], [place], [address], 04/18/2024 08:58:50 Procedures None recorded. Surgeries None recorded. Imaging None recorded. Medication Orders alprazola m 1 mg tablet 2024 025 [facility]2510, [address] [place], [address], 01/24/2025 09:15:43 amitripty line 75 mg tablet 2024 025 [facility] #2510, [address] [place], [address], 01/24/2025 09:15:43 amitripty line 50 mg tablet 2024 025 [facility] #2510, [address] [place] [address], [id number], 11/20/2024 13:06:21 bisoprolo l fumarate 10 mg tablet 2024 025 [facility] [address] [place] [address], [id number], 09/12/2024 16:53:42 Bystolic 20 mg tablet 2024 025 [facility] [address] [place] [address], [id number], 09/12/2024 16:53:43 amitripty line 25 mg tablet 2024 025 [address] [place] [address], [id number], 01/24/2025 09:05:46 trazodone 100 mg tablet 2023 024 [facility] [address] [place] [address], [id number], 03/21/2024 10:05:01 alprazola m 1 mg tablet 2023 024 [facility] [address] [place] [address], [id number], 03/21/2024 10:05:04 bupropion HCl SR 100 mg tablet,12 hr sustained -release 2023 024 [address], [address] [place] [address], [id number], 09/12/2024 16:37:55 Patient TargetsNo targets recorded. Patient InstructionsNo instructions recorded. Reason for Referral Psychiatrist Referral for Mi xed anxiety and depressive disorder Please call patient to schedule an appointment. Thank you. Referring Physician: [facility], Encounter Date: 03/21/2024 Pain Management Referral for Low back pain Please call patient to schedule an appointment. Thank you. Referring Physician: Felicitas Fortune [facility], Encounter Date: 10/23/2024 Results Created Date Observation Date Name Description Value Unit Range Abnormal Flag Note LastModifiedBy Organization Detail LastModifiedTime Result Notes None recorded. Problems Name Problem SNOMED Code Status Onset Date Resolution Date Notes Provider Name and Address Organization Details Recorded Time Diabetes mellitus 58795264 Completed Not Available [facility] 3 21:28:09 Neurapraxi a 173732835 Active 2018 Not Available [facility] 3 21:28:08 Type 2 diabetes mellitus 49996621 Active 2018 Not Available [facility] 3 21:28:09 Steatotic liver disease 910442405 Active 2020 Not Available [facility] 3 21:28:08 Hypertensi ve disorder 04527011 Completed 202002/19/2021 Not Available [facility] 3 21:28:08 Hypothyroi dism 70571242 Active 2020 Not Available [facility] 3 21:28:08 Anxiety 38867424 Active 2020 Not Available [facility] 3 21:28:09 Hyperlipid emia 34580419 Active 2020 Not Available [facility] 3 21:28:09 Essential hypertensi on 61124246 Active 2020 Not Available [facility] 3 21:28:09 Sleep apnea 12185384 Active 2020 mouth guard Not Available [facility] 3 21:28:09 Hyperchlor emia 87547106 Completed 202002/19/2021 Not Available [facility] 3 21:28:09 Attention deficit hyperactiv ity disorder 337731603 Active 2022 Cady Perez MD [address] [place] [address], [phone] , [facility] 09:41:04 Pancreatit is 15853268 Active 2022 Cady Perez MD [address], [place], [address] , [employer] [facility] 3 15:01:41 Insomnia 774705530 Active 2022 Cady Perez MD [address], [place], [address] , [employer] 3 16:31:24 Cough 21347022 Active 2023 Cady Perez MD [address], [place], [address] , [employer] [facility] [employer] 4 16:08:31 Mixed anxiety and depressive disorder 668874350 Active 2023 COLTEN Galloway [address], [place], [address] , [employer] 4 09:57:42 Upper respirator y infection 38272680 Active 2024 COLTEN Galloway [address], [place], [address] , [employer] [facility] [employer] 5 11:04:32 Tachycardi a 2084960 Active 2024 COLTEN Galloway [address], [place], [address] , [employer] [facility] [employer] 5 22:25:31 Low back pain 707902663 Active 2024 COLTEN Galloway [address], [place], [address] , [employer] [facility] [employer] 5 16:38:30 Notes:Medical History: Anxie ty/Depression Obesity with mild OSAHS, AHI = 4, 04/18/21 Hypothyroidism Mixed hyperlipidemia Hypertension T2DM Hepatic steatosis Problem Notes None recorded. Medical Equipment None Reported. Allergies No known drug allergies Medications Name Sig Start Date Stop Date Status Note LastModified by Organization Details LastModified Time cyclobenzap rine 10 mg tablet 1/2 TO 1 TAB BY MOUTH TWICE DAILY NEEDED active Not Available Not Available No t Available venlafaxine ER 37.5 mg capsule,ext ended release 24 hr TAKE 1 CAPSULE BY MOUTH EVERY DAY 09/19 completed Not Available Not Available Not Available venlafaxine ER 75 mg capsule,ext ended release 24 hr TAKE 1 CAPSULE BY MOUTH EVERY DAY IN THE MORNING 03/21 completed Not Available Not Available Not Available ketoconazol e 2 % shampoo 02/19 completed Not Available Not Available Not Available azithromyci n 250 mg tablet TAKE 2 TABLETS BY MOUTH TODAY, THEN TAKE 1 TABLET DAILY FOR 4 DAYS DIRECTED 09/12 completed Not Available Not Available Not Available pravastatin 40 mg tablet TK 1 T PO QD 02/19 completed Not Available Not Available Not Available alprazolam 1 mg tablet TAKE 1 TABLET BY MOUTH EVERY 6 HOURS NEEDED active Not Available Not Available No t Available amitriptyli ne 75 mg tablet TAKE 1 TABLET BY MOUTH EVERYDAY AT BEDTIME active Not Available Not Available No t Available nystatin 100,000 unit/gram topical ointment 09/19 completed Not Available Not Available Not Available tizanidine 4 mg tablet TAKE 1 TABLET BY MOUTH TWICE A DAY NEEDED FOR MUSCLE SPASTICIT Y active Not Available Not Available No t Available hydrocodone 5 mg-acetamin ophen 325 mg tablet Take 1 tablet every 6 hours by oral route as needed. 09/19 completed Not Available Not Available Not Available ondansetron HCl 8 mg tablet Take 1 tablet 3 times a day by oral route as needed. 09/19 completed Not Available Not Available Not Available meloxicam 15 mg tablet TAKE 1 TABLET BY MOUTH DAILY NEEDED active Not Available Not Available No t Available prednisone 20 mg tablet TAKE 2 TABLETS BY MOUTH EVERY MORNING WITH FOOD FOR 5 DAYS 01/24 completed Not Available Not Available Not Available dextroamphe tamine-amph etamine 10 mg tablet TAKE 1 TABLET BY MOUTH EVERY DAY 03/16 completed Not Available Not Available Not Available sertraline 100 mg tablet TAKE 1 TABLET BY MOUTH EVERY DAY 02/19 completed Not Available Not Available Not Available venlafaxine ER 150 mg capsule,ext ended release 24 hr TAKE 1 CAPSULE BY MOUTH EVERY DAY IN THE MORNING 03/25 completed Not Available Not Available Not Available clindamycin 1 %-benzoyl peroxide 5 % topical gel APPLY TO BACK DIRECTED TWICE A DAY 04/11 completed Not Available Not Available Not Available amitriptyli ne 50 mg tablet TAKE 1 TABLET BY MOUTH EVERYDAY AT BEDTIME active Not Available Not Available No t Available bupropion HCl SR 100 mg tablet,12 hr sustained-r elease TAKE 1 TABLET BY MOUTH TWICE A DAY 09/12 completed Not Available Not Available Not Available ondansetron 8 mg disintegrat ing tablet Place 1 tablet 3 times a day by transling ual route as needed. 09/19 completed Not Available Not Available Not Available Adderall XR 20 mg capsule,ext ended release TAKE 1 CAPSULE BY MOUTH EVERY DAY active Not Available Not Available No t Available fenofibrate micronized 134 mg capsule TAKE 1 CAPSULE BY MOUTH DAILY BEFORE BREAKFAST . active Not Available Not Available No t Available bisoprolol fumarate 10 mg tablet Take 1 tablet every day by oral route. 2024 active Not Available Not Available Not Avai lable bisoprolol fumarate 5 mg tablet TAKE 1 TABLET BY MOUTH EVERY DAY 03/25 completed Not Available Not Available Not Available hydrocortis one 2.5 % topical cream with perineal applicator APPLY SPARINGLY TO AFFECTED AREA 2 TO 4 TIMES A DAY 09/19 completed Not Available Not Available Not Available amitriptyli ne 25 mg tablet TAKE 1 TABLET BY MOUTH EVERYDAY AT BEDTIME 01/24 completed Not Available Not Available Not Available prednisolon e acetate 1 % eye drops,suspe nsion INSTILL 1 DROP INTO BOTH EYES TWICE A DAY SHAKE WELL BEFORE USING 09/19 completed Not Available Not Available Not Available methocarbam ol 750 mg tablet TAKE 1 TABLET BY MOUTH THREE TIMES A DAY 09/19 completed Not Available Not Available Not Available trazodone 100 mg tablet TAKE 1 TABLET BY MOUTH EVERYDAY AT BEDTIME NEEDED active Not Available Not Available No t Available OneTouch Ultra Test strips USE TO TEST QD active Not Available Not Available No t Available imiquimod 5 % topical cream packet 02/19 completed Not Available Not Available Not Available levothyroxi ne 50 mcg tablet TAKE 1 TABLET BY MOUTH EVERY DAY active Not Available Not Available No t Available econazole nitrate 1 % topical cream APPLY TWICE DAILY TO FACE 04/11 completed Not Available Not Available Not Available ferrous sulfate 325 mg (65 mg iron) tablet TAKE 1 TABLET BY MOUTH EVERY DAY 09/19 completed Not Available Not Available Not Available metformin 1,000 mg tablet TK 1 T PO BID WITH THE MORNING AND KIMBERLEE MEAL 02/19 completed Not Available Not Available Not Available buspirone 10 mg tablet TAKE 2 TABLETS BY MOUTH TWICE A DAY active Not Available Not Available No t Available dextroamphe tamine-amph etamine 20 mg tablet TAKE 1 TABLET BY MOUTH THREE TIMES A DAY active Not Available Not Available No t Available fluorometho lone 0.1 % eye drops,suspe nsion INSTILL 1 DROP INTO BOTH EYES 3 TIMES A DAY 09/12 completed Not Available Not Available Not Available metronidazo le 0.75 % topical cream APPLY THIN LAYER TOPICALLY TO THE AFFECTED AREA TWICE DAILY IN THE MORNING AND IN THE EVENING 02/19 completed Not Available Not Available Not Available fluoxetine 10 mg capsule 1 po qday with 20 mg cap 03/16 completed Not Available Not Available Not Available irbesartan 75 mg tablet TAKE 1 TABLET BY MOUTH EVERY DAY 02/19 completed Not Available Not Available Not Available diclofenac sodium 75 mg tablet,leon yed release TAKE 1 TABLET BY MOUTH TWICE A DAY prn 03/21 completed Not Available Not Available Not Available hydrocortis one 2.5 % topical cream 02/19 completed Not Available Not Available Not Available pravastatin 20 mg tablet TAKE 1 TABLET BY MOUTH EVERY DAY active Not Available Not Available No t Available irbesartan 150 mg tablet TAKE 1 TABLET BY MOUTH EVERY DAY active Not Available Not Available No t Available ondansetron 4 mg disintegrat ing tablet TAKE 1 TABLET BY MOUTH EVERY 8 HOURS 09/19 completed Not Available Not Available Not Available fluoxetine 20 mg capsule TAKE 1 CAPSULE BY MOUTH EVERY DAY 03/16 completed Not Available Not Available Not Available metformin ER 500 mg tablet,exte nded release 24 hr TAKE 2 TABLETS (1,000 MG TOTAL) BY MOUTH 2 (TWO) TIMES A DAY AFTER BREAKFAST AND DINNER active Not Available Not Available No t Available glipizide 5 mg tablet TAKE 1 TABLET (5 MG TOTAL) BY MOUTH 2 (TWO) TIMES A DAY BEFORE BREAKFAST AND DINNER 09/12 completed Not Available Not Available Not Available mometasone 0.1 % topical cream 09/19 completed Not Available Not Available Not Available dextroamphe tamine-amph etamine ER 15 mg 24hr capsule,ext end release TAKE 1 CAPSULE BY MOUTH EVERY DAY 09/30 completed Not Available Not Available Not Available bupropion HCl SR 200 mg tablet,12 hr sustained-r elease TAKE 1 TABLET BY MOUTH TWICE A DAY 10/23 completed Not Available Not Available Not Available atomoxetine 40 mg capsule 03/13 completed Not Available Not Available Not Available metformin ER 750 mg tablet,exte nded release 24 hr TAKE 1 TABLET BY MOUTH TWICE A DAY WITH MEALS 04/11 completed Not Available Not Available Not Available rosuvastati n 20 mg tablet TAKE 1 TABLET BY MOUTH EVERY DAY 03/31 completed Not Available Not Available Not Available tadalafil 20 mg tablet TAKE 1 TABLET BY MOUTH 30 MINUTES PRIOR TO ACTIVITY (MAX 1 DAILY) active Not Available Not Available No t Available duloxetine 30 mg capsule,del ayed release TAKE 1 CAPSULE BY MOUTH EVERY DAY 09/19 completed Not Available Not Available Not Available duloxetine 60 mg capsule,del ayed release TAKE 1 CAPSULE BY MOUTH EVERY DAY 09/30 completed Not Available Not Available Not Available omega-3 acid ethyl esters 1 gram capsule TAKE 2 CAPSULES BY MOUTH 2 TIMES A DAY. active Not Available Not Available No t Available pregabalin 75 mg capsule TAKE 1 CAPSULE BY MOUTH TWICE A DAY 09/19 completed Not Available Not Available Not Available atomoxetine 80 mg capsule TAKE 1 CAPSULE BY MOUTH EVERY DAY 08/21 completed Not Available Not Available Not Available Veregen 15 % topical ointment APPLY TOPICALLY 3 TIMES A DAY 04/11 completed Not Available Not Available Not Available nebivolol 10 mg tablet TAKE 1 TABLET BY MOUTH EVERY DAY active Not Available Not Available No t Available nebivolol 20 mg tablet TAKE 1 TABLET BY MOUTH EVERY DAY active Not Available Not Available No t Available vilazodone 40 mg tablet TAKE 1 TABLET BY MOUTH EVERY DAY 03/21 completed Not Available Not Available Not Available vilazodone 20 mg tablet TAKE 1 TABLET BY MOUTH EVERY DAY 03/25 completed Not Available Not Available Not Available icosapent ethyl 1 gram capsule TAKE 2 CAPSULES BY MOUTH 2 TIMES A DAY. 03/21 completed Not Available Not Available Not Available Victoza 3-Ashvin 0.6 mg/0.1 mL (18 mg/3 mL) subcutaneou s pen injector INJECT 1.8 MG UNDER THE SKIN DAILY INDICATIO NS: TYPE 2 DIABETES MELLITUS 03/25 completed Not Available Not Available Not Available Jardiance 25 mg tablet TAKE 1 TABLET (25 MG TOTAL) BY MOUTH DAILY. active Not Available Not Available No t Available Humalog KwikPen U-200 Insulin 200 unit/mL (3 mL) subcutaneou s INJECT INSULIN DIRECTED MAY USE A MAX OF 15 UNITS PER DAY 02/19 completed Not Available Not Available Not Available Basaglar KwikPen U-100 Insulin 100 unit/mL (3 mL) subcutaneou s INJECT 10 UNITS TWICE A DAY (MAX 30 UNITS PER DAY DIRECTED) 02/19 completed Not Available Not Available Not Available BD Sravanthi 2nd Gen Pen Needle 32 gauge x 5/32 USE TO INJECT ONCE A DAY DIRECTED active Not Available Not Available No t Available OneTouch Delica Plus Lancet 33 gauge USE TO TEST EVERY DAY active Not Available Not Available No t Available Flucelvax Quad 60 mcg (15 mcg x 4)/0.5 mL intramuscul ar susp 03/21 completed Not Available Not Available Not Available Mounjaro 7.5 mg/0.5 mL subcutaneou s pen injector INJECT 7.5 MG SUBCUTANE OUSLY WEEKLY 09/19 completed Not Available Not Available Not Available Mounjaro 5 mg/0.5 mL subcutaneou s pen injector INJECT 5 MG SUBCUTANE OUSLY EVERY 7 DAYS 09/19 completed Not Available Not Available Not Available Mounjaro 2.5 mg/0.5 mL subcutaneou s pen injector INJECT 0.5 ML (2.5 MG TOTAL) UNDER THE SKIN EVERY 7 DAYS active Not Available Not Available No t Available Vitals Date Recorded Body height Body mass index (BMI) Body weight Body temperature Heart rate Oxygen saturation Oxygen saturation in Arterial blood by Pulse oximetry Systolic And Diastolic Provider Name and Address Organization Details Last Updated DateTime 5 177.8 cm 29.1 kg/m2 35057.2 5 g 98.4 [degF] 102 /min 98 % 98 % 120/88 mm[Hg] MIGUEL ANGEL Bo[place] [facility] 5 16:43:13 Date Recorded Body height Body mass index (BMI) Body weight Body temperature Heart rate Oxygen saturation Oxygen saturation in Arterial blood by Pulse oximetry Systolic And Diastolic Provider Name and Address Organization Details Last Updated DateTime 5 177.8 cm 30.1 kg/m2 39545.4 g 97.3 [degF] 95 /min 98 % 98 % 118/78 mm[Hg] MIGUEL ANGEL [place] [employer] [facility] [employer] 5 16:32:29 Date Recorded Body height Provider Name an d Address Organization Details Last Updated DateTime 11/19/2023 177.8 cm Jesusita Busby RN [facility] 11/19/2023 08:54:07 Date Recorded Body height Body mass index (BMI) Body weight Body temperature Heart rate Oxygen saturation Oxygen saturation in Arterial blood by Pulse oximetry Systolic And Diastolic Provider Name and Address Organization Details Last Updated DateTime 5 177.8 cm 28.7 kg/m2 25370.4 7 g 97.3 [degF] 67 /min 99 % 99 % 100/62 mm[Hg] MIGUEL ANGEL [place] [employer] [facility] [employer] 5 09:09:15 Date Recorded Body height Body mass index (BMI) Body weight Body temperature Oxygen saturation Oxygen saturation in Arterial blood by Pulse oximetry Heart rate Systolic And Diastolic Provider Name and Address Organization Details Last Updated DateTime 4 177.8 cm 28.3 kg/m2 73229.7 g 95 [degF] 97 % 97 % 65 /min 102/68 mm[Hg] Fransisca Aguilar RN [facility] 4 09:45:43 Social History Question Answer Notes LastModified by Organizat ion Details LastModified Time Tobacco Smoking Status Never Smoker Not Available [employer] 07/08/2022 21:27:35 Do You Have An Advance Directive? No [id number] Information not available 07/08/2022 Do You Wear A Helmet When Biking? No [id number] Information not available 07/08/2022 What Is Your Level Of Caffeine Consumption? Occasional [id number] Information not available 07/08/2022 In The 14 Days Before Symptom Onset, Have You Had Close Contact With A Laboratory-confir med COVID-19 While That Case Was Ill? No [id number] Information not available 07/08/2022 In The 14 Days Before Symptom Onset, Have You Had Close Contact With A Person Who Is Under Investigation For COVID-19 While That Person Was Ill? No [id number] Information not available 07/08/2022 What Type Of Diet Are You Following? REGULAR [id number] Information not available 07/08/2022 Do You Use Insect Repellent Routinely? Yes Information not available 09/12/2024 Where Do You Live? [facility] Information not available 09/12/2024 Do You Have A Medical Power Of Traffic Engineering Technician? No [id number] Information not available 07/08/2022 What Was The Date Of Your Most Recent Tobacco Screening? 09/12/2024 Information not available 09/12/2024 Do You Have Any Pets? Yes Information not available 09/12/2024 What Is Your Relationship Status? Single [id number] Information not available 07/08/2022 Do You Use Your Seat Belt Or Car Seat Routinely? Yes [id number] Information not available 07/08/2022 Do You Have Smoke And Carbon Monoxide Detectors In Your Home? Yes Information not available 09/12/2024 Are There Any Smokers In Your House? No Information not available 09/12/2024 Do You Participate In Social Media? No [id number] Information not available 07/08/2022 Do You Use Sunscreen Routinely? Yes Information not available 09/12/2024 Has Tobacco Cessation Counseling Been Provided? No [id number] Information not available 07/08/2022 Have You Recently Traveled Abroad? No [id number] Information not available 07/08/2022 Do You Have Any Dietary Restrictions? No [id number].[id number] Information not available 07/08/2022 Sex: Unknown Functional Status Question Answer Note LastModified by Organizat ion Details LastModified Time Do you use any illicit or recreational drugs? No [id number] Information not available 07/08/2022 Do you or have you ever used any other forms of tobacco or nicotine? No [id number] Information not available 07/08/2022 What is your level of alcohol consumption? None [id number].[id number] Information not available 07/08/2022 Are you currently employed? Yes Information not available 09/12/2024 What is your exercise level? Occasional [id number] Information not available 07/08/2022 Mental Status Question Answer Note LastModified by Organizat ion Details LastModified Time Do you feel stressed (tense, restless, nervous, or anxious, or unable to sleep at night)? [id number] Information not available 07/08/2022 Family History Relationship Description Onset Age of this Age Resolved Age Notes LastModified by Organization Details LastModified Time Maternal Grandmother Rheumatoid arthritis [id number] Not available 07/08/2022 21:27:42 Mother Essential hypertension [id number] Not available 07/08/2022 21:27:42 Mother Hyperlipidem ia [id number] Not available 07/08/2022 21:27:42 Medical History No medical history recorded. Immunizations Vaccine Type Date Status Note Provider Nam e and Address Organization Details Recorded Time Influenza, split virus, quadrivalent, PF 03/16/2022 completed Not Available [facility] 3 21:29:31 Influenza, split virus, quadrivalent, PF 02/19/2021 completed Not Available [facility] 3 21:29:32 COVID-19 vaccine, vector-nr, rS-Ad26, PF, 0.5 mL 07/15/2020 completed Not Available [facility] 5 09:03:39 Influenza, split virus, quadrivalent, PF 03/25/2023 completed Cady Perez MD [address] [place] [address], [phone], [facility] [employer] 04/07/2023 13:37:02 Past Encounters Encounter ID Performer Location Encounter Start Date Encounter Closed Date Diagnosis/Indication Diagnosis SNOMED-CT Code Diagnosis ICD10 Code Diagnosis IMO Codes Diagnosis Note [id number] Cady Perez MD [facility] [place] [address] [place] [address] 02/19/2021 00:00:00 03/04/2021 10:32:45 [id number] Cady Perez MD [facility] [place] [address] [place] [address] 03/26/2021 00:00:00 03/31/2021 10:17:08 [id number] Cady Perez MD [facility] [place] [address] [place] [address] 04/17/2021 00:00:00 05/07/2021 19:01:04 [id number] Cady Perez MD [facility] [place] [address] [place] [address] 05/01/2021 00:00:00 05/05/2021 10:16:44 [id number] Cady Perez MD [facility] [place] [address] [place] [address] 06/25/2021 00:00:00 07/07/2021 13:55:57 [id number] Cayd Perez MD [facility] [place] [address] [place] [address] 07/23/2021 00:00:00 08/06/2021 07:50:50 [id number] Cady Perez MD [facility] [place] [address] [place] [address] 08/21/2021 00:00:00 08/21/2021 09:03:57 [id number] Cady Perez MD [facility] [place] [address] [place] [address] 09/30/2021 00:00:00 09/30/2021 11:36:29 [id number] Cady Perez MD [facility] [place] [address] [place] [place] [address] 11/17/2021 00:00:00 11/17/2021 14:25:53 [id number] Cady Perez MD [facility] Primary Care Mayda quiroz [address] [place] [address] [address] [place] [address] 12/24/2021 00:00:00 12/24/2021 15:16:22 [id number] Cady Perez MD [facility] Primary Care Mayda quiroz [address] [place] [address] [address] [place] [address] 03/16/2022 00:00:00 03/16/2022 15:33:05 [id number] Cady Perez MD [facility] Primary Care Eppsjossue gigi [address] [place] [address] [address] [place] [address] 06/16/2022 00:00:00 07/05/2022 15:57:46 [id number] Cady Perez MD [facility] Primary Care [address] [place] [address] 09/15/2022 14:58:24 09/15/2022 15:53:05 Adult health examination [id number] Z00.00 continue healthy diet/exerc iseflu vaccine yearlycovi d booster per cdc guidelines fasting labs done by endocrinol ogy Hyperlipidemia 92825843 E78.5 sees endocrinol ogy Attention deficit hyperactivity disorder 314602763 F90.9 stablePt understand s this medication has risk for abuse/depe ndence and agrees to take it only as prescribed and to guard from loss/theft Essential hypertension 51914296 I10 in excellent control Hypothyroidism 72215242 E03.9 sees endocrinol ogy [id number] Cady ePrez MD [facility] Primary Care Mayda quiroz [address] [place] [address] [address] [place] [address] 03/25/2023 10:01:19 03/25/2023 16:30:37 Administration of influenza vaccine 77714848 Z23 Essential hypertension 40002957 I10 in excellent control, will increase bisoprolol to 10 mg to see if it helps anxietyf/u in 6 months or sooner if needed [id number] Cady Perez MD [facility] Primary Care [address] [place] [address] 09/20/2023 09:42:36 09/20/2023 10:01:25 Anxiety 71636048 F41.9 stable, refills given Attention deficit hyperactivity disorder 731173211 F90.9 stablerefi lls givenPt understand s this medication has risk for abuse/depe ndence and agrees to take it only as prescribed and to guard from loss/theft Hypothyroidism 63246795 E03.9 sees endocrinol ogy Type 2 gian betes mellitus 61924741 E11.9 sees endocrinol ogy [id number] COLTEN Bonilla [facility] Primary Care [address] [address] 11/19/2023 08:43:13 11/19/2023 08:54:53 [id number] COLTEN Galloway [facility] Primary Care [address] [address] 03/21/2024 09:36:08 03/21/2024 10:16:37 Attention deficit hyperactivity disorder 029872642 F90.9 Patient has been trying to wean himself off of his Adderall, has only been taking one to two tablets daily. Patient thinks this could be contributi ng to his anxiety, especially at work but he feels like he has been on the medication too long. Mixed anxi ety and depressive disorder 583403290 F41.8 Will start treatment as listed below, patient will follow up in one month, sooner if needed.Francia sarah verbalized understand ing of potential side effects and to contact the office if he did not tolerate the medication .Referral for psychiatry placed.Den ies SI/HI. An[place] 57935691 F41.9 [place] 02/29/24UD S UTDlast appt: 03/21/24Wi ll follow up in 3 months. Insomnia 130967799 G47.0 0 Doing well on current medication , will continue to fill. [id number] COLTEN Galloway [facility] Primary Care [address] [place] [address] 09/12/2024 16:30:03 09/12/2024 17:02:26 Mixed anxiety and depressive disorder 449718265 F41.8 Will start treatment as listed below, patient will follow up in one month, sooner if needed.Pat ient verbalized understand ing of potential side effects and to contact the office if he did not tolerate the medication .Denies SI/HI. Essential hypertension 68951752 I10 120/88 Tachycardia 0045428 R00. 0 [id number] HR: 908 [id number] COLTEN Galloway [facility] Primary Care [facility] [address] [facility] [address] [place] [address] 10/23/2024 16:19:04 10/23/2024 16:44:40 Mixed anxiety and depressive disorder 451741897 F41.8 Will start treatment as listed below, patient will follow up in one month, sooner if needed.Pat iekrupa verbalized understand ing of potential side effects and to contact the office if he did not tolerate the medication .Denies SI/HI. Low back pain 226255461 M54.50 [id number] COLTEN Galloway [facility] Primary Care [address] [place] [address] 01/24/2025 09:01:10 01/24/2025 09:16:11 Anxiety 28171051 F41.[address] [place] [place] 11/30/24UD S UTDlast appt: 01/24/25Wi ll follow up in 3 months. Mixed anxi ety and depressive disorder 939626188 F41.8 Will increase meds as listed below.Laure ent to contact office in one month with update.Den ies SI/HI. Health Concerns Section Related Observation LastModified by Organization Detai ls LastModified Time None Recorded Concern Status LastModified by Organization Details LastModified Time None Recorded Advance Directives Directive N: Payers Insurance Date Sequence Insurance Name Policy Number Policy King Covered Member ID King Member ID Guarantor Name 01/18/2025 1 [employer] ([employer]) [id number] Mohinder Rasmussen [id number] Mohinder Rasmussen 01/29/2025 1 [facility] [id number] Mohinder Rasmussen [id number] Mohinder Rasmussen Notes Date Note Type Note Provider Name and Address Organization Details Recorded Time 03/21/2024 text/html ROS as noted in the HPI Patient is a 33 year old male that presents to the office for 6 month follow up and medication management. Patient reports his anxiety has been off the charts recently due to work, family and friends. Patient reports he has been back and forth on his Venlafaxine and Vilazodone because he gets to a point where they make him feel worse. Patient reports the Alprazolam does help with his anxiety when he takes it, he is only taking 1/2 tablet three times daily as needed. Patient was previously seeing Dr. Vaca but he and he has not established care with a new psychiatrist yet. Patient also reports that his new insurance plan does not cover mental health. Patient denies SI/HI. Patient reports he has been trying to wean himself off of his Adderall so this could also be contributing with the anxiety he is experiencing, especially at work. Patient continues to follow Dr. Tavarez, endocrinology. Patient denies chest pain and shortness of breath. COTLEN Galloway [address], [place], [address], [employer] 03/21/2024 10:45:45 09/12/2024 text/html ROS as noted in the HPI Patient is a 34 year old male that presents to office for follow up. COLTEN Galloway [address], [place], [address], [employer] 09/14/2024 22:25:54 10/23/2024 text/html Patient is a 34 year old male that presents to the office for 6 week follow up. Patient reports he is doing better since starting the Amitriptyline, however he would like to try and increase the dose. Patient is also requesting a referral to pain management for chronic back pain. COLTEN Galloway [address], [employer] [place], [address], [employer] 10/24/2024 10:29:18 01/24/2025 text/html Patient is a 34 year old male that presents to the office for 3 month follow up. Patient reports he is doing well since increasing the Xanax and starting Amitriptyline. He reports his mom has noticed a different in his mood and he has been getting out of the house and doing more although he still has some bad days.Denies SI/HI. Felicitas Fortune, VP [employer] [address] [facility], [facility] [address], [place], [address], [facility] [employer] 01/24/2025 09:21:06
--- OUTSIDE RECORDS SUMMARY | 2025-02-19 06:58 | XMS_ITS | Encounter Summary ---
Author Organization [facility] Healthcare Address [address] [place] [address] Care Team Providers Care Processor Helper Name Role Phone Cady Perez MD Primary Care Provider + Reason for Visit * Reason Onset Date Comments Pre-Surgical Call 01/28/2022 Encounter Details Date Type Department Care Team (Late st Contact Info) Description 01/28/2022 Telephone [facility] [address] [place] [id number] Evelina Mcclendon MD PhD [address] [facility] [address] [facility] [place], [place] [id number] Pre-Surgical Call Social History Tobacco Use Types Packs/Day Years Used Date Smoking Tobacco: Never Smokeless Tobacco: Never AUDIT-C Answer Date Recorded Q1: How often do you have a drink containing alc ohol? 2-4 times a month 11/26/2021 Q2: How many drinks containi ng alcohol do you have on a typical day when you are drinking? 1 or 2 11/26/2021 Frequency of Binge Drinking Not on file 11/08 PHQ-2 Answer Date Recorded PHQ-2 Total Score (If total score is 3 or more points, staff should administer the PHQ-9) 1 09/08/2021 Sex and Gender Information Value Date Recorded Sex Assigned at Not on file Legal Sex Male 3:30 AM [employer] Gender Identity Not on file Sexual Orientation Not on file documented as of this encounter Miscellaneous Notes * Pre-Procedure Instructions - Gudelia Jones RN - 01/28/2022 8:37 AM CDT Spoke with pt regarding pre procedure instructions. Pt verbalized understanding. documented in this encounter Plan of Treatment Not on file documented as of this encounter Goals Goal Patient Goal Type Associated Problems Recent Progress Patient-Stated? Author CCM Chronic Pain Care Plan Chronic Care Management No change(04/22 9:00 AM [employer]) No Lakeisha Stanford RN Note: Problem: Chronic Pain Goals: 1. Minimize further functional decline 2. Maximize quality of life 3. Control pain Strategies: - Activity/exercise program recommendation - Conservative stepwise pain medicine strategy with multi-disciplinary approach - Recommend healthy lifestyle strategies and compensatory methods as needed documented as of this encounter Visit Diagnoses Not on filedocumented in this encounter Care Teams Processor Helper Relationship Specialty Start Date End Date Cady Perez MD [address] [place] [address] DR MOSS [address] [place] [id number] PCP - General Family Medicine 03/10/21 documented as of this encounter
--- OUTSIDE RECORDS SUMMARY | 2025-02-19 06:58 | XMS_ITS | Clinical Summary ---
Author Organization [facility] Address [address] [place] [address] Care Team Providers Care Burlap Roll Coverer Name Role Phone Liborio Trotter MD Primary Care Provider [phone] Source Comments [facility],non-owned Affiliates and Associated Physician Practices is amultiple site organization consisting of ambulatory clinics and hospital sitesin [place], [place], [place] and [place]. This disclosure is being madepursuant to the Care Everywhere program and may not contain all information available regarding this patient. Last updated 18.[facility] Social History Tobacco Use Types Packs/Day Years Used Date Smoking Tobacco: Never Assessed Sex and Gender Information Value Date Recorded Sex Assigned at Not on file Legal Sex Male 1:30 PM CDT Gender Identity Not on file Sexual Orientation Not on file Plan of Treatment Health Maintenance Due Date Last Done Comments HIV SCREENING 2004 HEPATITIS C SCREENING 08/31/2007 DTAP/TDAP/TD VACCINES (1 - Tdap) 2008 HEPATITIS B VACCINE (1 of 3 - 19+ 3-dose series) 2008 HPV VACCINE (1 - 3-dose SCDM series) 2016 DEPRESSION SCREENING 05/10/2024 COVID-19 VACCINE ( - 2023-2 5 season) 2025 INFLUENZA VACCINE (#1) 2025 ZOSTER VACCINE (1 of 2) 09/05/2039 HIB VACCINE Aged Out No longer eligi ble based on patient's age to complete this topic MENINGOCOCCAL (Group B) VACC INE SHARED DECISION-MAKING Aged Out No longer eligibl e based on patient's age to complete this topic MENINGOCOCCAL GROUPS A/C/Y/W VACCINE Aged Out No longer eligible b ased on patient's age to complete this topic PNEUMOCOCCAL VACCINE Aged Out No long er eligible based on patient's age to complete this topic Insurance Care Teams Burlap Roll Coverer Relationship Specialty Start Date End Date Liborio Trotter MD PCP - General 10/16/21
--- OUTSIDE RECORDS SUMMARY | 2025-02-19 06:58 | XMS_ITS | Clinical Summary ---
Author Organization [facility] Address [address] [place] [address] Care Team Providers Care Patient Financial Coordinator Name Role Phone Cady Perez MD Primary Care Provider + Allergies No known active allergies Medications ALPRAZolam (XANAX) 1 mg tablet Take 1 tablet (1 mg total) by mouth every 4 hours 1 Active blood glucose diagnostic (OneTouch Verio test strips) strip 1 each by other route daily 8 Active dextroamphetamine- amphetamine (ADDERALL) 20 mg tablet Take 1 tablet (20 mg total) by mouth 2 (two) times a day Active irbesartan (AVAPRO) 150 mg tablet Take 1 tablet (150 mg total) by mouth daily 1 Active loratadine (CLARITIN) 10 mg tablet Take 1 tablet (10 mg total) by mouth daily Active OneTouch Delica Plus Lancet 33 gauge misc 1 each by other route daily [id number] not insulin dependent 100 each 2 2 Active tadalafiL (CIALIS) 20 mg tablet tadalafil 20 mg tablet Active busPIRone (BUSPAR) 10 mg tablet 2 tablets (20 mg total) 2 (two) times a day 2 Active blood glucose diagnostic (OneTouch Ultra Test) strip OneTouch Ultra Test strips USE TO TEST QD Active lancets 33 gauge misc OneTouch Delica Plus Lancet 33 gauge Active nystatin ointment APPLY FOUR TIMES DAILY TO RASH ON PENIS FOR 4 WEEKS 3 Active ondansetron ODT (ZOFRAN-ODT) 4 mg disintegrating tablet Take 1 tablet (4 mg total) by mouth every 8 (eight) hours 3 Active vilazodone (VIIBRYD) 40 mg tablet 3 Active cyclobenzaprine (FLEXERIL) 10 mg tablet Take 1 tablet (10 mg total) by mouth 3 (three) times a day as needed Active tiZANidine (ZANAFLEX) 4 mg tabletIndications: Chronic bilateral low back pain without sciatica Take 1 tablet (4 mg total) by mouth every 8 (eight) hours as needed for muscle spasms 90 tablet 1 4 Active omega-3 fatty acids (LOVAZA) 1 gram capsuleIndications :Hyperlipidemia associated with type 2 diabetes mellitus (HCC) Take 2 capsules (2 g total) by mouth 2 (two) times a day 120 capsule 11 4 02/28/20 25 Active buPROPion SR (WELLBUTRIN SR) 100 mg 12 hr tablet Oral for 30 Days Active fluorometholone (FML) 0.1 % ophthalmic suspension INSTILL 1 DROP INTO BOTH EYES 3 TIMES A DAY 4 Active bisoprolol (ZEBETA) 10 mg tablet Take 1 tablet (10 mg total) by mouth daily 4 Active tirzepatide (Mounjaro) 2.5 mg/0.5 mL pen injector injectionIndicatio ns:type 2 diabetes mellitus Inject 0.5 mL (2.5 mg total) under the skin every 7 days 2 mL 11 5 05/10/19 26 Active amitriptyline (ELAVIL) 25 mg tablet 5 Active glipiZIDE (GLUCOTROL) 5 mg tabletIndications: type 2 diabetes mellitus Take 1 tablet (5 mg total) by mouth daily with dinner 90 tablet 3 5 Active empagliflozin (JARDIANCE) 25 mg tabletIndications: type 2 diabetes mellitus Take 1 tablet (25 mg total) by mouth daily 30 tablet 5 5 03/17/20 25 Active levothyroxine (SYNTHROID) 50 mcg tabletIndications: Acquired hypothyroidism Take 1 tablet (50 mcg total) by mouth daily 90 tablet 3 5 09/19/19 26 Active metFORMIN XR (GLUCOPHAGE XR) 500 mg 24 hr tabletIndications: Type 2 diabetes mellitus with hyperglycemia, without long-term current use of insulin (HCC) Take 2 tablets (1,000 mg total) by mouth 2 (two) times a day after breakfast and dinner 360 tablet 3 5 09/19/19 26 Active fenofibrate micronized (LOFIBRA) 134 mg capsuleIndications :Hyperlipidemia associated with type 2 diabetes mellitus (HCC) TAKE 1 CAPSULE BY MOUTH DAILY BEFORE BREAKFAST. 90 capsule 3 5 Active pravastatin (PRAVACHOL) 20 mg tabletIndications: Hyperlipidemia associated with type 2 diabetes mellitus (HCC) TAKE 1 TABLET BY MOUTH EVERY DAY 90 tablet 3 5 Active Active Problems Problem Noted Date Diagnosed Date Hypertriglyceridemia 02/22/2023 Assessment & Plan (02/22/2023 11:23 AM CDT): Plan as above Chronic pain of right knee 02/12/2022 Spondylosis of lumbar region without myelopathy or radiculopathy 01/14/2022 Enthesopathy 12/18/2021 Chronic pain syndrome 12/18/2021 Chronic bilateral low back pain without sciatica 12/18/2021 Overweight with body mass in dex (BMI) of 29 to 29.9 in adult 09/09/2021 Assessment & Plan (03/05/2024 10:36 AM CDT): Chronic, slowly worsening Counseled on healthy lifestyle habits Advised to increase physical activity Watch portions and carbohydrates Assessment & Plan (09/07/2023 1:02 PM CDT): Counseled on healthy lifestyle habits Encourage patient to keep working on his diet and exercise Assessment & Plan (08/10/2022 11:02 AM CDT): Chronic, worsening Discussed about healthy lifestyle habits advise to work on healthy diet, avoid processed foods , increase vegetables and protein and cut back on carb portions and also avoid fruit juices and regular soda and desserts Increase physical activity , recommend at least 150 min of aerobic activity per week and include resistance training 2 x weekly Assessment & Plan (02/09/2022 1:41 PM CDT): Chronic, slowly improving Counseled on diet and exercise Assessment & Plan (09/09/2021 9:28 AM CDT): Chronic, worsening Discussed about healthy lifestyle habits advise to work on healthy diet, avoid processed foods , increase vegetables and protein and cut back on carb portions and also avoid fruit juices and regular soda and desserts Increase physical activity , recommend at least 150 min of aerobic activity per week and include resistance training 2 x weekly Type 2 diabetes mellitus wit h hyperglycemia, without long-term current use of insulin 03/10/2021 Assessment & Plan (06/08/2024 2:26 PM CAR SALESMAN): Chronic problem. A1c at goal & improved greatly from 8.2% 02/28/24 to now 6.8%. has had increased cravings & increased weight. Concerned that BG will rise. Discussed Mounjaro & his risk of pancreatitis (had 2017 & 2022). Will restart Mounjaro 2.5mg. went over risks of pancreatitis again. Discussed watching blood sugars after glipizide. May need to cut the dose in half (initially) or totally stop depending on low blood sugar. Current medications: Metformin XR 1000mg after breakfast & dinner. Jardiance 25mg daily Glipizide 5mg twice daily with meals Mounjaro 2.5mg weekly. UTD on labs. UTD on DM eye exam (03/04/24 no DMR/DME [facility]) Strive for regular exercise (30min most days) and diet (get at least 4-5 servings of fruit and veggies daily, avoid processed foods, increase lean protein intake and decrease carb portions as well as fruit juices, regular soda & desserts). Watch carbs and simple sugars. Check the blood sugar every 1-2 days. Check the feet daily for skin breakdown and infection. Assessment & Plan (03/05/2024 10:37 AM CDT): Chronic, uncontrolled, worsening Hemoglobin A1c 8.2% goal A1c at least less than 7% Given history of pancreatitis patient has been taken off of GLP 1 agonist during his last office visit He is currently on metformin full dose and Jardiance Advised to increase glipizide to 5 mg 1 tablet oral twice a day Strongly advised patient to work on his diet Increase physical activity and watch portions and carbohydrates and include more vegetables and protein with meals Assessment & Plan (09/07/2023 1:00 PM CDT): Chronic, improving control At goal A1c 5.9% Stop Mounjaro ( due to h/o recurrent pancreatitis ) Switch to Glipizide 5 mg oral twice daily with meals ( breakfast and dinner ) Continue Metformin XR and Jardiance the same Keep working on your diet and exercise , watch your weight closely Labs today Follow up in 6 months Assessment & Plan (02/22/2023 11:23 AM CDT): Chronic, uncontrolled, slowly improving but still above goal A1c 7.7% Inconsistent lifestyle habits Counseled patient on diet and exercise Advised to work on consistency with his diet and exercise Offered to go up on mounjaro dose at this time but patient deferred to go up on the dose. For now continue current dose of metformin, Jardiance and mounjaro Up-to-date with eye exam Daily foot care A1c check in 3 months Follow-up in 6 months Assessment & Plan (11/30/2022 12:28 PM CDT): Chronic problem. Uncontrolled & worsening.A 1c has risen from 8.4% to now 9.5%. Has started to improve diet, going to gym 2-3x/wk. Recently back for week long vacation. Has stopped drinking ETOH. Has missed Mounjaro x3+ weeks. Has mounjaro 7.5mg weekly at pharmacy now--will go to [facility]. Current medications: Metformin XR 1000mg after breakfast & dinner. Jardiance 25mg daily Mounjaro 7.5mg weekly UTD on labs. UTD on DM eye exam. Strive for regular exercise (30min most days) and diet (get at least 4-5 servings of fruit and veggies daily, avoid processed foods, increase lean protein intake and decrease carb portions as well as fruit juices, regular soda & desserts). Watch carbs and simple sugars. Check the blood sugar every 1-2 days. Check the feet daily for skin breakdown and infection. Assessment & Plan (08/10/2022 11:03 AM CDT): Chronic , uncontrolled, worsening HbA1c - 8.4 % Work on diet and exercise Cut back on processed food and sugars Portion control on carbs and increase physical activity Small and early dinners Work on stress management Limit snacking and when you do pick healthier options Stop victoza Start Mounjaro 2.5 mg SQ weekly for 4 weeks than increase to 5 mg SQ weekly for 4 weeks than increase to 7.5 mg SQ weekly Continue taking Metformin and Jardiance the same Sent script for DEXCOM G 7 to pt pharmacy Assessment & Plan (02/09/2022 1:42 PM CDT): Chronic, improving control A1c 6.4% Counseled on diet and exercise Advised to work on healthy weight loss Continue current medication regimen Recommend annual dilated eye exam Daily foot care Labs today Follow-up as scheduled Assessment & Plan (09/09/2021 9:28 AM CDT): Chronic, improving control A1c 6.3% Counseled on diet and exercise Advised to work on healthy weight loss Continue current medication regimen Recommend annual dilated eye exam Daily foot care Follow-up as scheduled Assessment & Plan (06/16/2021 10:56 AM CAR SALESMAN): Chronic, uncontrolled, worsening A1c today 7.6% Counseled on diet and exercise Continue with dose a 1.8 mg subQ daily Continue oral metformin Start Jardiance 25 mg oral daily Advised to increase physical activity Annual dilated eye exam Daily foot care Advised good oral hydration Follow-up in 3 month Assessment & Plan (03/10/2021 12:29 PM CDT): Chronic, uncontrolled, improving A1c - 7.5 % Counseled on diet and exercise Advised to eat portion control, carb controlled diet, Work on early dinner Advised to start exercising at least 30-60 minutes every day Work on healthy weight loss Do not skip meals Avoid unhealthy snacking Work on getting at least 7-8 hours of sleep Work on stress management Continue Victoza 1.8 mg subQ daily and metformin current dose Try to obtain patient recent eye exam copy Will try to get patient on Dexcom G6 CGM Daily foot care Follow-up in 3 months Hyperlipidemia associated with type 2 diabetes anthony maxwell 03/10/2021 Assessment & Plan (06/08/2024 2:08 PM CAR SALESMAN): Chronic problem. Currently taking Pravastatin 20mg, fenofibrate 134mg & Lovaza 2g bid. Last lipid panel: 05/24/24 DHI=518, QY=698. Assessment & Plan (03/05/2024 10:36 AM CDT): Continue statin therapy and Vascepa Recommend low carb diet Assessment & Plan (09/07/2023 1:00 PM CDT): Chronic, uncontrolled continue statin therapy and Vascepa Assessment & Plan (02/22/2023 11:24 AM CDT): Pt on statin therapy Counseled on diet and exercise Severe hypertriglyceridemia complicated by pancreatitis in past probably due to poor eating habits and excess alcohol intake Patient has stopped drinking alcohol, currently on statin therapy and Vascepa Advised patient to take Vascepa 2 g oral b.i.d. Continue fenofibrate Recheck fasting lipid panel today Assessment & Plan (11/30/2022 12:28 PM CDT): Chronic problem. Currently taking Vascepa 2g bid has not been taking the fenofibrate 134mg but will resume. Last lipid panel: 08/10/22 LDL=<4, XF=3825. Has improved diet, stopped drinking ETOH & started exercising again. Assessment & Plan (08/10/2022 11:03 AM CDT): Pt on statin therapy Tolerating well Assessment & Plan (02/09/2022 1:41 PM CDT): Pt on statin therapy Tolerating well Assessment & Plan (09/09/2021 9:27 AM CDT): Pt on statin therapy Tolerating well Assessment & Plan (06/16/2021 10:28 AM CAR SALESMAN): Pt on statin therapy Tolerating well Assessment & Plan (03/10/2021 12:23 PM CDT): Pt on statin therapy Tolerating well LDL improving on treatment Hypertension associated with diabetes 03/10/2021 Assessment & Plan (06/08/2024 2:08 PM CAR SALESMAN): Chronic problem. Controlled on current irbesartan 150mg daily. No changes at this time. Assessment & Plan (03/05/2024 10:36 AM CDT): Chronic, well controlled Continue irbesartan Assessment & Plan (09/07/2023 1:01 PM CDT): Chronic, well controlled Continue irbesartan Assessment & Plan (02/22/2023 11:22 AM CDT): Chronic, well controlled Continue current medication Assessment & Plan (11/30/2022 11:33 AM CDT): Chronic problem. Controlled on current irbesartan 150mg daily. No changes at this time. Assessment & Plan (08/10/2022 11:02 AM CDT): Chronic, well controlled Continue current medication Assessment & Plan (02/09/2022 1:41 PM CDT): Chronic, well controlled Continue current medication Assessment & Plan (09/09/2021 9:27 AM CDT): Chronic, well controlled Continue current medication Assessment & Plan (06/16/2021 10:28 AM CAR SALESMAN): Chronic, well controlled Continue current medication Assessment & Plan (03/10/2021 12:05 PM CDT): Chronic, well controlled Continue current medication Acquired hypothyroidism 03/10/2021 Assessment & Plan (06/08/2024 2:08 PM CAR SALESMAN): Chronic problem. Clinically & biochemically euthyroid. TFTs WNL 08/2023 on current levothyroxine 50mcg daily. Aware to take 1st thing in morning, 30-60 minutes before food/drink/other medications. Assessment & Plan (03/05/2024 10:35 AM CDT): Chronic, stable Recommend to continue current dose of levothyroxine Assessment & Plan (09/07/2023 1:01 PM CDT): Chronic, unknown status Patient currently on levothyroxine 50 mcg oral daily Recheck thyroid function test and further plans based on it Assessment & Plan (02/22/2023 11:21 AM CDT): Chronic, stable Continue current dose of levothyroxine therapy Last TSH 08/2022 within normal limits Assessment & Plan (11/30/2022 11:34 AM CDT): Chronic problem. Clinically & biochemically euthyroid. TFTs WNL 08/2022 on current levothyroxine 50mcg daily. No changes at this time. Assessment & Plan (08/10/2022 10:31 AM CDT): Continue current dose of levothyroxine therapy Recheck TSH today and further plans based on it Assessment & Plan (02/09/2022 1:41 PM CDT): Continue current dose of levothyroxine therapy Recheck TSH today and further plans based on it Assessment & Plan (09/09/2021 9:28 AM CDT): Chronic, overall well controlled Recent TSH within normal limits Continue current dose of levothyroxine therapy Assessment & Plan (06/16/2021 10:29 AM CAR SALESMAN): Pt on Levothyroxine 50 mcg oral daily Tolerating well Recheck thyroid function test and further plans based on it Assessment & Plan (03/10/2021 12:27 PM CDT): Pt on Levothyroxine 50 mcg oral daily Tolerating well Recheck thyroid function test and further plans based on it Surgical History Surgery Date Site/Laterality Comments GANGLION CYST EXCISION Right wrist ACHILLES TENDON REPAIR Left WISDOM TOOTH EXTRACTION x4 Medical History Medical History Date Comments Type 2 diabetes mellitus Hyperlipidemia Hypertension ADD (attention deficit disorder) Anxiety Hypothyroidism Gall stones Osteoarthritis Poor appetite Wears glasses Nausea & vomiting Muscle pain Weakness Tremors of nervous system Family History Medical History Relation Name Comments No Known Problems Father Anxiety disorder Maternal Grandmother Diabetes Maternal Grandmother Anxiety disorder Mother Depression Mother Relation Name Status Comments Father Alive Maternal Grandmother Mother Alive Social History Tobacco Use Types Packs/Day Years Used Date Smoking Tobacco: Former Cigarettes Smokeless Tobacco: Never AUDIT-C Answer Date Recorded Q1: How often do you have a drink containing alc ohol? 2-4 times a month 04/22/2022 Q2: How many drinks containi ng alcohol do you have on a typical day when you are drinking? 1 or 2 04/22/2022 Q3: How often do you have si x or more drinks on one occasion? Never 04/22/2022 PHQ-2 Answer Date Recorded PHQ-2 Total Score (If total score is 3 or more points, staff should administer the PHQ-9) 0 09/02/2023 Sex and Gender Information Value Date Recorded Sex Assigned at Not on file Legal Sex Male 3:30 AM CAR SALESMAN Gender Identity Not on file Sexual Orientation Not on file Obstetrics History Last Filed Vital Signs Vital Sign Reading Time Taken Comments Blood Pressure 122/84 09/18/2024 2:41 PM CDT Pulse 89 09/18/2024 2:41 PM CDT Temperature 36.2 C (97.1 F) 12/11/2022 9:07 AM CDT Respiratory Rate 16 09/18/2024 2:41 PM CDT Oxygen Saturation 98% 12/11/2022 9:07 AM CDT Inhaled Oxygen Concentration - - Weight 91.6 kg (202 lb) 09/18/2024 2:41 PM CDT Height 175.3 cm (5' 9) 09/18/2024 2:41 PM CDT Body Mass Index 29.83 09/18/2024 2:41 PM CDT Plan of Treatment Health Maintenance Due Date Last Done Comments Hepatitis C Screening 1989 DTaP/Tdap/Td Vaccine (1 - Tdap) 2000 Varicella Vaccines (1 of 2 - 13+ 2-dose series) 2002 Hepatitis B Screening 09/05/2007 Regular Well Visit/Exam 18-64 09/05/2007 Pneumococcal vaccine <65 (1 of 2 - PCV) 2008 HPV Vaccines (1 - 3-dose SCD M series) 2016 Albumin Creatinine Ratio, Urine 09/01/2024 09/02/2023, 08/10/2022, 02/09/2022, Additional history exists Depression Screening 09/01/2024 09/02/2023, 02/09/2022, 09/08/2021, Additional history exists eGFR 09/01/2024 09/02/2023, 040 07/2022, 02/09/2022, Additional history exists Covid-19 Vaccine (2 - 2024-2 6 season) 2025 07/15/2020 Influenza Vaccine (#1) 2025 , 03/16/2022, 02/19/2021, Additional history exists Foot Exam 02/27/2025 02/28/2024, 2 09/2023, 02/22/2023, Additional history exists Hemoglobin A1C 03/21/2025 09/18/2024, 05/12, 02/28/2024, Additional history exists Lipid Panel 05/24/2025 05/24/2024, 02/07, 08/10/2022, Additional history exists Dilated Eye Exam 03/04/2026 03/04/2024, 04/2022, 01/29/2021 Goals Goal Patient Goal Type Associated Problems Recent Progress Patient-Stated? Author CCM Chronic Pain Care Plan Chronic Care Management No change(04/22 9:00 AM CAR SALESMAN) No Lakeisha Stanford, RN Note: Problem: Chronic Pain Goals: 1. Minimize further functional decline 2. Maximize quality of life 3. Control pain Strategies: - Activity/exercise program recommendation - Conservative stepwise pain medicine strategy with multi-disciplinary approach - Recommend healthy lifestyle strategies and compensatory methods as needed Procedures Procedure Name Priority Date/Time Associated Diagnosis Comments POCT HEMOGLOBIN A1C Routine 09/18/2024 2 :46 PM CDT Type 2 diabetes mellitus with hyperglycemia, without long-term current use of insulin (HCC) LIPID PANEL Routine 05/24/2024 7:49 AM CAR SALESMAN Type 2 diabetes mellitus with hyperglycemia, without long-term current use of insulin (HCC) Hyperlipidemia associated with type 2 diabetes mellitus (HCC) HM DIABETES EYE EXAM Routine 03/04/2024 7:28 AM CDT EGFR Routine 09/02/2023 11:36 AM CDT Type 2 diabetes mellitus with hyperglycemia, without long-term current use of insulin (HCC) Hypertension associated with diabetes (HCC) ALBUMIN CREATININE RATIO, URINE Routine 09/02/2023 11:36 AM CDT Type 2 diabetes mellitus with hyperglycemia, without long-term current use of insulin (HCC) from Last 3 Months or Most Recently Relevant to Health Maintenance Results * (ABNORMAL) POCT hemoglobin A1c (09/18/2024 2:46 PM CDT) Pathologist [facility] Hemoglobin A1C, POC 6.1(A) 4.0 - 5.6 % Blood 09/18/2024 2:46 PM CDT [facility] Corby Tavarez MD POINT OF CARE TEST ORDERABLES Final Result * (ABNORMAL) Lipid panel (05/24/2024 7:49 AM CAR SALESMAN) Pathologist [facility] Cholesterol 178 <200 mg/dL [employer] HDL 40 > OR = 40 mg/dL [facility] Triglycerides 233(H) <150 mg/dL [facility] Comment: If a non-fasting specimen was collected, consider repeat triglyceride testing on a fasting specimen if clinically indicated. Jesus et al. J. of Clin. Lipidol. 2015;9:129-169. LDL 103(H) mg/dL (calc) [facility] Comment: Reference range: <100 Desirable range <100 mg/dL for primary prevention; <70 mg/dL for patients with CHD or diabetic patients with > or = 2 CHD risk factors. LDL-C is now calculated using the Flo calculation, which is a validated novel method providing better accuracy than the Friedewald equation in the estimation of LDL-C. Tj BUI et al. DENICE. 2013;310(19): 7078-6334 (http://education.[employer]/faq/VSM501) Chol/HDL ratio 4.5 <5.0 (calc) [facility] Non-HDL, (LDL+VLDL) 138(H) <130 mg/dL (calc) [employer] Comment: For patients with diabetes plus 1 major ASCVD risk factor, treating to a non-HDL-C goal of <100 mg/dL (LDL-C of <70 mg/dL) is considered a therapeutic option. Blood 05/24/2024 7:49 AM CAR SALESMAN 05/24/2024 7:50 AM CAR SALESMAN Narrative [facility] - 05/25/2024 12:19 AM CAR SALESMAN FASTING:YES FASTING: YES Khai Tavarez MD LAB BLOOD ORDERABLE S Final Result [facility] [address] [place] [address] * DIABETES EYE EXAM (03/04/2024 7:28 AM CDT) Historical Provider HEALTH MAINTENANCE Final Result * eGFR (09/02/2023 11:36 AM CDT) eGFR 74 >=60 mL/min/1. 73 m2 Comment: Interpretive Data Reference Interval Normal >/= 90 mL/min/1.73m2 Mildly decreased* 60 - 89 mL/min/1.73m2 Mildly to moderately decreased 45 - 59 mL/min/1.73m2 Moderately to severely decreased 30 - 44 mL/min/1.73m2 Severely decreased 15 - 29 mL/min/1.73m2 Kidney Failure < 15 mL/min/1.73m2 *Relative to young adult level Estimated glomerular filtration rate is determined by the 2020 CKD-EPI equation recommended by the National Kidney Foundation (A Unifying Approach to GFR Estimation: Recommendations of the NKF-ASK Task Force on Reassessing the Inclusion of Race in Diagnosing Kidney Disease, JASN 2020). The CKD-EPI equation should not be used for patients with unstable renal function and has not been validated in children and those over 70. Current interpretive data was last reviewed 2021. Blood 09/02/2023 11:3 6 AM CDT 09/02/2023 3:02 PM CDT us Khai Tavarez MD LAB BLOOD ORDERABLE S Final Result Performing Organization Address City/[facility] Co de Phone Number SAL[place]ORE [id number] [address] [employer] [place], [place] [id number] * Albumin Creatinine Ratio, Urine (09/02/2023 11:36 AM CDT) Albumin Ur <12.0 mg/L Comment: Interpretive Data No reference range established. Current interpretive data was last revised 2018. Creatinine Ur 70.2 mg/dL SALVATORE GALE Comment: Interpretive Data No reference range established. Current interpretive data was last revised 2018. Albumin Creatinine Ratio, Ur <17 1 - 29 mg/g [place] Urine 09/02/2023 11:3 6 AM CDT 09/02/2023 2:45 PM CDT us Khai Tavarez MD LAB URINE ORDERABLE S Final Result Performing Organization Address [facility] Co de Phone Number SAL[place]ORE GALE [address] [place] [address] from Last 3 Months or Most Recently Relevant to Health Maintenance Insurance [facility] CHOICE PLUS Care Teams Patient Financial Coordinator Relationship Specialty Start Date End Date Cady Perez MD [address] [place] [address] [place] [address] PCP - General Family Medicine 03/10/21
--- OUTSIDE RECORDS SUMMARY | 2025-02-19 06:58 | XMS_ITS | Patient Health Record ---
Author Organization [facility] [place] Address [address] [facility] [address] [place] [address] Care Team Providers Care Cupola Liner Name Role Phone Felicitas Resendiz Primary Care Provider Reema Zuñiga Unavailable [phone] Allergies No Known Allergies Reason For Referral No Information Medications Medication SIG (Take, Route, Frequency, Duration) Notes Start Date End Date Status Irbesartan 150 MG Tablet TAKE 1 TABLET B Y MOUTH EVERY DAY Oral; Duration: 90 Days Active tiZANidine HCl 4 MG Tablet TAKE 1 TABLET (4 MG TOTAL) BY MOUTH EVERY 8 (EIGHT) HOURS NEEDED FOR MUSCLE SPASMS Oral; Duration: 30 Days Active Vwbru-4-ucsk Ethyl Esters 1 GM Capsule Oral; Duration: 90 Days Acti ve Amphetamine-Dextroamphetami ne 20 MG Tablet TAKE 1 TABLET BY MOUTH THREE TIMES A DAY Oral; Duration: 30 Days Active busPIRone HCl 10 MG Tablet TAKE 2 TABLET S BY MOUTH TWICE A DAY Oral; Duration: 90 Days Active Bisoprolol Fumarate 10 MG Tablet TAKE 1 TABLET BY MOUTH EVERY DAY Oral; Duration: 90 Days Active Fenofibrate Micronized 134 MG Capsule TAKE 1 CAPSULE BY MOUTH DAILY BEFORE BREAKFAST. Oral; Duration: 90 Days Active buPROPion HCl ER (SR) 100 MG Tablet Extended Release 12 Hour Oral; Duration: 30 Days Acti ve Pravastatin Sodium 20 MG Tablet TAKE 1 TABLET BY MOUTH EVERY DAY Oral; Duration: 90 Days Active ALPRAZolam 1 MG Tablet TAKE 1 TABLET BY MOUTH EVERY 8 HOURS NEEDED Oral; Duration: 15 Days Active Tadalafil 20 MG Tablet TAKE 1 TABLET BY MOUTH 30 MINUTES PRIOR TO ACTIVITY (MAX 1 DAILY) Oral; Duration: 15 Days Active Pravastatin Sodium 20 MG Tablet Oral; Duration: 90 Days Acti ve Synthroid 50 MCG Tablet 1 tablet in the morning on an empty stomach Orally Once a day Active glipiZIDE 5 MG Tablet TAKE 1 TABLET (5 M G TOTAL) BY MOUTH 2 (TWO) TIMES A DAY BEFORE BREAKFAST AND DINNER Oral; Duration: 90 Days Active Jardiance 25 MG Tablet TAKE 1 TABLET (25 MG TOTAL) BY MOUTH DAILY. Oral; Duration: 30 Days Active Social History Tobacco Use: Social History Observation Description Date Details (start date - stop date) Never Smoker NA - NA Sex Assigned At : Social History Observation Description Sex Assigned At Male Social History Miscellaneous: Social Info Question Answer Notes Advance Care Planning Are you your own decision-maker Yes Do you have Power of Driver/Refuse Collector for Health or [facility]? No Tobacco Use: Social Info Question Answer Notes Tobacco Control (Standard) Tobacco use: Nonsmoker Problems Problem Type SNOMED Code ICD Code Onset Dates Problem Status W/U Status Risk Notes Problem Primary insomnia (5753393) Primary insomnia (F51.01) Active confirmed Problem Generalized anxiety disorder (97048013) BA (generalized anxiety disorder) (F41.1) Active confirmed Problem Attention deficit hyperactivity disorder (628590412) ADHD (attention deficit hyperactivity disorder), combined type (F90.2) Active confirmed Problem Moderate recurrent major depression (59649110) MDD (major depressive disorder), recurrent episode, moderate (F33.1) Active confirmed Problem Nondependent cannabis abuse (724948909) Marijuana use (F12.90) Active confirmed Problem Long-term current use of drug therapy (276655457) penitentiary use of drug (Z79.899) Active confirmed Vital Signs Heart Rate 85 /min 06/01/2024 Height-cm 177.8 cm 06/01/2024 Blood pressure diastolic 75 mm Hg 06/01/2024 Weight-kg 94.35 kg 06/01/2024 Height 70 in 06/01/2024 Blood pressure systolic 113 mm Hg 06/01/2024 Weight 208 lbs 06/01/2024 BMI 29.84 kg/m2 06/01/2024 Encounters Encounter Location Date Provider Diagnosis [facility] [employer] [facility] [address] [facility] [address] [place] [address] 06/01/2024 Reema Ramsey MDD (major depressiv e disorder), recurrent episode, moderate F33.1 ; BA (generalized anxiety disorder) F41.1 ; ADHD (attention deficit hyperactivity disorder), combined type F90.2 ; Primary insomnia F51.01 ; 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 Depression Wellbutrin SR 100 mg twice a day discuss and educated on light box and proper use 2. Anxiety Xanax 1mg reported takes 1/2 tablet twice a day 3. ADHD SCHEDULE Test prescribed Adderall 20 mg three times a day and reported takes 10 mg three times a day, educated on no control substance with cannabis use or illegal drug use, or excessive ETOH use ADHD stimulates education Discuss with patient risk of misuse, abuse, and addiction before prescribing stimulant medicines. Benefits Consulting Analyst patients not to share their prescribed stimulant with anyone else. Educate patients and their families on these serious risks, proper storage of the medicine, and proper disposal of any unused medicine. Educated patient will monitor Throughout treatment, regularly assess and monitor them for signs and symptoms of nonmedical use, addiction, and potential diversion, which may be evidenced by more frequent renewal. requests than warranted by the prescribed dosage. Random UDS [place] prescription reviewed local pharmacy in [facility], no early refills on control substance educated on non-stimulate and stimulates 4 Insomnia sleep hygiene hxTrazodone 100 mg - takes 1/2 tab - r/o nightmares Reported Melatonin 5 mg at bedtime OTC 5. Cannabis use no controll susbtance prescribed by MARIANNA with cannabis use 6. Educated on ETOH use and amount using and risk Recommend decrease/stop cannabis use as it can negatively impact mood, motivation, anxiety, sleep, focus/concentratio n/memory (vigilance, elasticity, processing and attention); can also contribute to development of psychosis. http_s://www.nimh. nih.gov/health/top ics/mental-health- medications http_s://www.ernesto. org/Uqtdu-Mdaepf-L llness/Treatments/ Ihzjyp-Tihiyd-Qlip cations Recommend decrease/stop cannabis use as it may be negatively impacting mood, motivation, anxiety, sleep, focus; can also contribute to development of psychosis Cannabis/marijuana information: http_s://kaveh.nih. gov/publications/d rugfacts/cannabis- marijuana http_s://www.Gogiro/cannabi n-ryq-xthrvdft-mar ijuana-adhd/ http_s://www.ernesto. org/Qjkpa-Rumwwx-X llness/Mental-Heal th-Conditions http_s://psychLiquidations [employer].com/depression /cbj-duefxqjuj-cdi zbktu-jp-xtoaaberw n#treatments http__s://www.nimh .nih.gov/health/to pics/mental-health -medications http__s://www.ernesto .org/About-Mental- Illness/Treatments /Jmhqmy-Tvojuq-Bpr ications educated on all medications, benefits, side effects and risk, and educated on depression, anxiety, and ADHD, mood d/o and educated on compliance of medications, metabolic and movement d/o education appointment's, continue therapy discussion with patient about course of treatment and patient instructions. education on serotonin syndrome Discussed and educated pt regarding benzodiazepines are generally not intended for prolonged use and that use can cause tolerance, dependence, depression, and associated memory issues including dementias (this list is not exhaustive). Benzodiazepine use is generally not recommended concurrently with pain medications and/or other controlled substances educated on all medications, benefits, side effects and risk, and educated on depression, anxiety, and ADHD, mood d/o and educated on compliance of medications, metabolic and movement d/o education appointment is, continue therapy discussion with patient about course of treatment and patient instructions. education on serotonin syndrome SSRI/SNRI side effects discussed including but not limited to, gastric upset, nausea, vomiting, diarrhea and/or constipation, weight changes, sexual side effects including loss of libido, increased suicidal thoughts/behaviors in children and young adults, and serotonin syndrome. Second generation antipsychotics (SGAs) have metabolic syndrome issues with weight gain, increase in prolactin, increased waist circumference, increased lipids, and increased glucose. Thus routine monitoring of weight, metabolic labs, etc. is indicated. A general rank ordering of antipsychotics that have the greatest to the least risk of metabolic effects is olanzapine, quetiapine, risperidone, ziprasidone, and aripiprazole. However, weight gain can occur with all of these drugs and considerable variability exists among patients receiving the same drug regarding the risk of metabolic effects. Anti-psychotic agents not only increase the risk of metabolic disorder, they also increase the risk of CVA, akathisia, and movement disorders including EPS or tardive dyskinesia (more common with first generation antipsychotics) and more. Medication Management and Follow-Up - Plan: - Schedule follow-up appointments every 1-3 months to monitor the patient's response to the medication regimen. - Reinforce the importance of avoiding recreational drug use due to potential neurotoxicity and interactions with prescribed medications. 06/01/2024 MDD (major depressive disorder), recurrent episode, moderate (ICD-10 - F33.1) presently taking Wellbutrin SR 100 mg twice a day, Xanax 1mg reported takes 1/2 tablet twice a day, Adderall 20 mg three times a day and reported takes 10 mg three times a day, - no refills needed today reported PCP filled all rx recently labs endo provider no refills needed today reported PCP filled all rx recently 1. Depression Wellbutrin SR 100 mg twice a day discuss and educated on light box and proper use 2. Anxiety Xanax 1mg reported takes 1/2 tablet twice a day 3. ADHD SCHEDULE Test prescribed Adderall 20 mg three times a day and reported takes 10 mg three times a day, educated on no control substance with cannabis use or illegal drug use, or excessive ETOH use ADHD stimulates education Discuss with patient risk of misuse, abuse, and addiction before prescribing stimulant medicines. Benefits Consulting Analyst patients not to share their prescribed stimulant with anyone else. Educate patients and their families on these serious risks, proper storage of the medicine, and proper disposal of any unused medicine. Educated patient will monitor Throughout treatment, regularly assess and monitor them for signs and symptoms of nonmedical use, addiction, and potential diversion, which may be evidenced by more frequent renewal. requests than warranted by the prescribed dosage. Random UDS [place] prescription reviewed local pharmacy in [facility], no early refills on control substance educated on non-stimulate and stimulates 4 Insomnia sleep hygiene hxTrazodone 100 mg - takes 1/2 tab - r/o nightmares Reported Melatonin 5 mg at bedtime OTC 5. Cannabis use no controll susbtance prescribed by MARIANNA with cannabis use 6. Educated on ETOH use and amount using and risk Recommend decrease/stop cannabis use as it can negatively impact mood, motivation, anxiety, sleep, focus/concentratio n/memory (vigilance, elasticity, processing and attention); can also contribute to development of psychosis. http_s://www.nimh. nih.gov/health/top ics/mental-health- medications http_s://www.ernesto. org/Ycdhg-Adomms-W llness/Treatments/ Xivqro-Ovbksw-Stef cations Recommend decrease/stop cannabis use as it may be negatively impacting mood, motivation, anxiety, sleep, focus; can also contribute to development of psychosis Cannabis/marijuana information: http_s://kaveh.nih. gov/publications/d rugfacts/cannabis- marijuana http_s://www.Gogiro/cannabi y-sgb-ddkjgsrt-mar ijuana-adhd/ http_s://www.ernesto. org/Rpxas-Hhewvi-G llness/Mental-Heal th-Conditions http_s://psychSuryoday Micro Financecom/depression /wte-ckxznirsl-rjb syxmo-mx-igqixirbq n#treatments http__s://www.nimh .nih.gov/health/to pics/mental-health -medications http__s://www.ernesto .org/About-Mental- Illness/Treatments /Uajmhm-Dviyke-Gjv ications educated on all medications, benefits, side effects and risk, and educated on depression, anxiety, and ADHD, mood d/o and educated on compliance of medications, metabolic and movement d/o education appointment's, continue therapy discussion with patient about course of treatment and patient instructions. education on serotonin syndrome Discussed and educated pt regarding benzodiazepines are generally not intended for prolonged use and that use can cause tolerance, dependence, depression, and associated memory issues including dementias (this list is not exhaustive). Benzodiazepine use is generally not recommended concurrently with pain medications and/or other controlled substances educated on all medications, benefits, side effects and risk, and educated on depression, anxiety, and ADHD, mood d/o and educated on compliance of medications, metabolic and movement d/o education appointment is, continue therapy discussion with patient about course of treatment and patient instructions. education on serotonin syndrome SSRI/SNRI side effects discussed including but not limited to, gastric upset, nausea, vomiting, diarrhea and/or constipation, weight changes, sexual side effects including loss of libido, increased suicidal thoughts/behaviors in children and young adults, and serotonin syndrome. Second generation antipsychotics (SGAs) have metabolic syndrome issues with weight gain, increase in prolactin, increased waist circumference, increased lipids, and increased glucose. Thus routine monitoring of weight, metabolic labs, etc. is indicated. A general rank ordering of antipsychotics that have the greatest to the least risk of metabolic effects is olanzapine, quetiapine, risperidone, ziprasidone, and aripiprazole. However, weight gain can occur with all of these drugs and considerable variability exists among patients receiving the same drug regarding the risk of metabolic effects. Anti-psychotic agents not only increase the risk of metabolic disorder, they also increase the risk of CVA, akathisia, and movement disorders including EPS or tardive dyskinesia (more common with first generation antipsychotics) and more. Medication Management and Follow-Up - Plan: - Schedule follow-up appointments every 1-3 months to monitor the patient's response to the medication regimen. - Reinforce the importance of avoiding recreational drug use due to potential neurotoxicity and interactions with prescribed medications. 06/01/2024 ADHD (attention deficit hyperactivity disorder), combined type (ICD-10 - F90.2) presently taking Wellbutrin SR 100 mg twice a day, Xanax 1mg reported takes 1/2 tablet twice a day, Adderall 20 mg three times a day and reported takes 10 mg three times a day, - no refills needed today reported PCP filled all rx recently labs endo provider no refills needed today reported PCP filled all rx recently 1. Depression Wellbutrin SR 100 mg twice a day discuss and educated on light box and proper use 2. Anxiety Xanax 1mg reported takes 1/2 tablet twice a day 3. ADHD SCHEDULE Test prescribed Adderall 20 mg three times a day and reported takes 10 mg three times a day, educated on no control substance with cannabis use or illegal drug use, or excessive ETOH use ADHD stimulates education Discuss with patient risk of misuse, abuse, and addiction before prescribing stimulant medicines. Benefits Consulting Analyst patients not to share their prescribed stimulant with anyone else. Educate patients and their families on these serious risks, proper storage of the medicine, and proper disposal of any unused medicine. Educated patient will monitor Throughout treatment, regularly assess and monitor them for signs and symptoms of nonmedical use, addiction, and potential diversion, which may be evidenced by more frequent renewal. requests than warranted by the prescribed dosage. Random UDS [place] prescription reviewed local pharmacy in [place], no early refills on control substance educated on non-stimulate and stimulates 4 Insomnia sleep hygiene hxTrazodone 100 mg - takes 1/2 tab - r/o nightmares Reported Melatonin 5 mg at bedtime OTC 5. Cannabis use no controll susbtance prescribed by MARIANNA with cannabis use 6. Educated on ETOH use and amount using and risk Recommend decrease/stop cannabis use as it can negatively impact mood, motivation, anxiety, sleep, focus/concentratio n/memory (vigilance, elasticity, processing and attention); can also contribute to development of psychosis. http_s://www.nimh. nih.gov/health/top ics/mental-health- medications http_s://www.ernesto. org/Gwsca-Gmmotr-A llness/Treatments/ Hlyarw-Qfhjls-Dnpq cations Recommend decrease/stop cannabis use as it may be negatively impacting mood, motivation, anxiety, sleep, focus; can also contribute to development of psychosis Cannabis/marijuana information: http_s://kaveh.nih. gov/publications/d rugfacts/cannabis- marijuana http_s://www.Gogiro/cannabi f-ggw-pzwhgfte-mar ijuana-adhd/ http_s://www.ernesto. org/Ijgyq-Zfenmq-L llness/Mental-Heal th-Conditions http_s://psychLiquidations Enchere [employer].com/depression /kel-ouztsgmcp-rcg owpri-yy-nmigejfbf n#treatments http__s://www.nimh .nih.gov/health/to pics/mental-health -medications http__s://www.ernesto .org/About-Mental- Illness/Treatments /Fxwrpn-Bkrper-Ihy ications educated on all medications, benefits, side effects and risk, and educated on depression, anxiety, and ADHD, mood d/o and educated on compliance of medications, metabolic and movement d/o education appointment's, continue therapy discussion with patient about course of treatment and patient instructions. education on serotonin syndrome Discussed and educated pt regarding benzodiazepines are generally not intended for prolonged use and that use can cause tolerance, dependence, depression, and associated memory issues including dementias (this list is not exhaustive). Benzodiazepine use is generally not recommended concurrently with pain medications and/or other controlled substances educated on all medications, benefits, side effects and risk, and educated on depression, anxiety, and ADHD, mood d/o and educated on compliance of medications, metabolic and movement d/o education appointment is, continue therapy discussion with patient about course of treatment and patient instructions. education on serotonin syndrome SSRI/SNRI side effects discussed including but not limited to, gastric upset, nausea, vomiting, diarrhea and/or constipation, weight changes, sexual side effects including loss of libido, increased suicidal thoughts/behaviors in children and young adults, and serotonin syndrome. Second generation antipsychotics (SGAs) have metabolic syndrome issues with weight gain, increase in prolactin, increased waist circumference, increased lipids, and increased glucose. Thus routine monitoring of weight, metabolic labs, etc. is indicated. A general rank ordering of antipsychotics that have the greatest to the least risk of metabolic effects is olanzapine, quetiapine, risperidone, ziprasidone, and aripiprazole. However, weight gain can occur with all of these drugs and considerable variability exists among patients receiving the same drug regarding the risk of metabolic effects. Anti-psychotic agents not only increase the risk of metabolic disorder, they also increase the risk of CVA, akathisia, and movement disorders including EPS or tardive dyskinesia (more common with first generation antipsychotics) and more. Medication Management and Follow-Up - Plan: - Schedule follow-up appointments every 1-3 months to monitor the patient's response to the medication regimen. - Reinforce the importance of avoiding recreational drug use due to potential neurotoxicity and interactions with prescribed medications. 06/01/2024 Primary insomnia (ICD-10 - F51.01) presently taking Wellbutrin SR 100 mg twice a day, Xanax 1mg reported takes 1/2 tablet twice a day, Adderall 20 mg three times a day and reported takes 10 mg three times a day, - no refills needed today reported PCP filled all rx recently labs endo provider no refills needed today reported PCP filled all rx recently 1. Depression Wellbutrin SR 100 mg twice a day discuss and educated on light box and proper use 2. Anxiety Xanax 1mg reported takes 1/2 tablet twice a day 3. ADHD SCHEDULE Test prescribed Adderall 20 mg three times a day and reported takes 10 mg three times a day, educated on no control substance with cannabis use or illegal drug use, or excessive ETOH use ADHD stimulates education Discuss with patient risk of misuse, abuse, and addiction before prescribing stimulant medicines. Benefits Consulting Analyst patients not to share their prescribed stimulant with anyone else. Educate patients and their families on these serious risks, proper storage of the medicine, and proper disposal of any unused medicine. Educated patient will monitor Throughout treatment, regularly assess and monitor them for signs and symptoms of nonmedical use, addiction, and potential diversion, which may be evidenced by more frequent renewal. requests than warranted by the prescribed dosage. Random UDS [place] prescription reviewed local pharmacy in [facility], no early refills on control substance educated on non-stimulate and stimulates 4 Insomnia sleep hygiene hxTrazodone 100 mg - takes 1/2 tab - r/o nightmares Reported Melatonin 5 mg at bedtime OTC 5. Cannabis use no controll susbtance prescribed by MARIANNA with cannabis use 6. Educated on ETOH use and amount using and risk Recommend decrease/stop cannabis use as it can negatively impact mood, motivation, anxiety, sleep, focus/concentratio n/memory (vigilance, elasticity, processing and attention); can also contribute to development of psychosis. http_s://www.nimh. nih.gov/health/top ics/mental-health- medications http_s://www.ernesto. org/Egkkd-Akgnsn-F llness/Treatments/ Hfkqjn-Etwnnl-Kokt cations Recommend decrease/stop cannabis use as it may be negatively impacting mood, motivation, anxiety, sleep, focus; can also contribute to development of psychosis Cannabis/marijuana information: http_s://kaveh.nih. gov/publications/d rugfacts/cannabis- marijuana http_s://www.ShipBob.Glympse/cannabi z-wgl-lggrsvbt-mar ijuana-adhd/ http_s://www.ernesto. org/Swdzh-Syxjhh-G llness/Mental-Heal th-Conditions http_s://psychcent [employer]able [employer].com/depression /pue-foufilcbx-bwg bjjsd-pe-awaagbjdg n#treatments http__s://www.nimh .nih.gov/health/to pics/mental-health -medications http__s://www.ernesto .org/About-Mental- Illness/Treatments /Hwqaxq-Xhqbma-Ehh ications educated on all medications, benefits, side effects and risk, and educated on depression, anxiety, and ADHD, mood d/o and educated on compliance of medications, metabolic and movement d/o education appointment's, continue therapy discussion with patient about course of treatment and patient instructions. education on serotonin syndrome Discussed and educated pt regarding benzodiazepines are generally not intended for prolonged use and that use can cause tolerance, dependence, depression, and associated memory issues including dementias (this list is not exhaustive). Benzodiazepine use is generally not recommended concurrently with pain medications and/or other controlled substances educated on all medications, benefits, side effects and risk, and educated on depression, anxiety, and ADHD, mood d/o and educated on compliance of medications, metabolic and movement d/o education appointment is, continue therapy discussion with patient about course of treatment and patient instructions. education on serotonin syndrome SSRI/SNRI side effects discussed including but not limited to, gastric upset, nausea, vomiting, diarrhea and/or constipation, weight changes, sexual side effects including loss of libido, increased suicidal thoughts/behaviors in children and young adults, and serotonin syndrome. Second generation antipsychotics (SGAs) have metabolic syndrome issues with weight gain, increase in prolactin, increased waist circumference, increased lipids, and increased glucose. Thus routine monitoring of weight, metabolic labs, etc. is indicated. A general rank ordering of antipsychotics that have the greatest to the least risk of metabolic effects is olanzapine, quetiapine, risperidone, ziprasidone, and aripiprazole. However, weight gain can occur with all of these drugs and considerable variability exists among patients receiving the same drug regarding the risk of metabolic effects. Anti-psychotic agents not only increase the risk of metabolic disorder, they also increase the risk of CVA, akathisia, and movement disorders including EPS or tardive dyskinesia (more common with first generation antipsychotics) and more. Medication Management and Follow-Up - Plan: - Schedule follow-up appointments every 1-3 months to monitor the patient's response to the medication regimen. - Reinforce the importance of avoiding recreational drug use due to potential neurotoxicity and interactions with prescribed medications. 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 Depression Wellbutrin SR 100 mg twice a day discuss and educated on light box and proper use 2. Anxiety Xanax 1mg reported takes 1/2 tablet twice a day 3. ADHD SCHEDULE Test prescribed Adderall 20 mg three times a day and reported takes 10 mg three times a day, educated on no control substance with cannabis use or illegal drug use, or excessive ETOH use ADHD stimulates education Discuss with patient risk of misuse, abuse, and addiction before prescribing stimulant medicines. Benefits Consulting Analyst patients not to share their prescribed stimulant with anyone else. Educate patients and their families on these serious risks, proper storage of the medicine, and proper disposal of any unused medicine. Educated patient will monitor Throughout treatment, regularly assess and monitor them for signs and symptoms of nonmedical use, addiction, and potential diversion, which may be evidenced by more frequent renewal. requests than warranted by the prescribed dosage. Random [facility] prescription reviewed local pharmacy in [facility], no early refills on control substance educated on non-stimulate and stimulates 4 Insomnia sleep hygiene hxTrazodone 100 mg - takes 1/2 tab - r/o nightmares Reported Melatonin 5 mg at bedtime OTC 5. Cannabis use no controll susbtance prescribed by MARIANNA with cannabis use 6. Educated on ETOH use and amount using and risk Recommend decrease/stop cannabis use as it can negatively impact mood, motivation, anxiety, sleep, focus/concentratio n/memory (vigilance, elasticity, processing and attention); can also contribute to development of psychosis. http_s://www.nimh. nih.gov/health/top ics/mental-health- medications http_s://www.ernesto. org/Fihbb-Goiwov-C llness/Treatments/ Wgluuw-Uvrbyq-Kxhl cations Recommend decrease/stop cannabis use as it may be negatively impacting mood, motivation, anxiety, sleep, focus; can also contribute to development of psychosis Cannabis/marijuana information: http_s://kaveh.nih. gov/publications/d rugfacts/cannabis- marijuana http_s://www.Gogiro/cannabi h-mld-pxwrbhua-mar ijuana-adhd/ http_s://www.ernesto. org/Rghbm-Bdforv-T llness/Mental-Heal th-Conditions http_s://psychcent [employer].com/depression /rwh-jqxetntdq-lst vsiub-ul-fgkokbdye n#treatments http__s://www.nimh .nih.gov/health/to pics/mental-health -medications http__s://www.ernesto .org/About-Mental- Illness/Treatments /Udojhc-Gjuoxk-Maa ications educated on all medications, benefits, side effects and risk, and educated on depression, anxiety, and ADHD, mood d/o and educated on compliance of medications, metabolic and movement d/o education appointment's, continue therapy discussion with patient about course of treatment and patient instructions. education on serotonin syndrome Discussed and educated pt regarding benzodiazepines are generally not intended for prolonged use and that use can cause tolerance, dependence, depression, and associated memory issues including dementias (this list is not exhaustive). Benzodiazepine use is generally not recommended concurrently with pain medications and/or other controlled substances educated on all medications, benefits, side effects and risk, and educated on depression, anxiety, and ADHD, mood d/o and educated on compliance of medications, metabolic and movement d/o education appointment is, continue therapy discussion with patient about course of treatment and patient instructions. education on serotonin syndrome SSRI/SNRI side effects discussed including but not limited to, gastric upset, nausea, vomiting, diarrhea and/or constipation, weight changes, sexual side effects including loss of libido, increased suicidal thoughts/behaviors in children and young adults, and serotonin syndrome. Second generation antipsychotics (SGAs) have metabolic syndrome issues with weight gain, increase in prolactin, increased waist circumference, increased lipids, and increased glucose. Thus routine monitoring of weight, metabolic labs, etc. is indicated. A general rank ordering of antipsychotics that have the greatest to the least risk of metabolic effects is olanzapine, quetiapine, risperidone, ziprasidone, and aripiprazole. However, weight gain can occur with all of these drugs and considerable variability exists among patients receiving the same drug regarding the risk of metabolic effects. Anti-psychotic agents not only increase the risk of metabolic disorder, they also increase the risk of CVA, akathisia, and movement disorders including EPS or tardive dyskinesia (more common with first generation antipsychotics) and more. Medication Management and Follow-Up - Plan: - Schedule follow-up appointments every 1-3 months to monitor the patient's response to the medication regimen. - Reinforce the importance of avoiding recreational drug use due to potential neurotoxicity and interactions with prescribed medications. 06/01/2024 Marijuana use (ICD-10 - F12.90) presently taking Wellbutrin SR 100 mg twice a day, Xanax 1mg reported takes 1/2 tablet twice a day, Adderall 20 mg three times a day and reported takes 10 mg three times a day, - no refills needed today reported PCP filled all rx recently labs endo provider no refills needed today reported PCP filled all rx recently 1. Depression Wellbutrin SR 100 mg twice a day discuss and educated on light box and proper use 2. Anxiety Xanax 1mg reported takes 1/2 tablet twice a day 3. ADHD SCHEDULE Test prescribed Adderall 20 mg three times a day and reported takes 10 mg three times a day, educated on no control substance with cannabis use or illegal drug use, or excessive ETOH use ADHD stimulates education Discuss with patient risk of misuse, abuse, and addiction before prescribing stimulant medicines. Benefits Consulting Analyst patients not to share their prescribed stimulant with anyone else. Educate patients and their families on these serious risks, proper storage of the medicine, and proper disposal of any unused medicine. Educated patient will monitor Throughout treatment, regularly assess and monitor them for signs and symptoms of nonmedical use, addiction, and potential diversion, which may be evidenced by more frequent renewal. requests than warranted by the prescribed dosage. Random [facility] [place] prescription reviewed local pharmacy in [facility], no early refills on control substance educated on non-stimulate and stimulates 4 Insomnia sleep hygiene hxTrazodone 100 mg - takes 1/2 tab - r/o nightmares Reported Melatonin 5 mg at bedtime OTC 5. Cannabis use no controll susbtance prescribed by MARIANNA with cannabis use 6. Educated on ETOH use and amount using and risk Recommend decrease/stop cannabis use as it can negatively impact mood, motivation, anxiety, sleep, focus/concentratio n/memory (vigilance, elasticity, processing and attention); can also contribute to development of psychosis. http_s://www.nimh. nih.gov/health/top ics/mental-health- medications http_s://www.ernesto. org/Leqti-Pcdbdz-A llness/Treatments/ Yzooly-Njtkel-Oqve cations Recommend decrease/stop cannabis use as it may be negatively impacting mood, motivation, anxiety, sleep, focus; can also contribute to development of psychosis Cannabis/marijuana information: http_s://kaveh.nih. gov/publications/d rugfacts/cannabis- marijuana http_s://www.Gogiro/cannabi s-nje-rypwgnwr-mar ijuana-adhd/ http_s://www.ernesto. org/Nqmdr-Mkeowy-K llness/Mental-Heal th-Conditions http_s://psychcent [employer].com/depression /buo-mbzkzyhco-xvw zvwxj-yl-asbozxnpr n#treatments http__s://www.nimh .nih.gov/health/to pics/mental-health -medications http__s://www.ernesto .org/About-Mental- Illness/Treatments /Nhttqb-Rsrlnp-Ffa ications educated on all medications, benefits, side effects and risk, and educated on depression, anxiety, and ADHD, mood d/o and educated on compliance of medications, metabolic and movement d/o education appointment's, continue therapy discussion with patient about course of treatment and patient instructions. education on serotonin syndrome Discussed and educated pt regarding benzodiazepines are generally not intended for prolonged use and that use can cause tolerance, dependence, depression, and associated memory issues including dementias (this list is not exhaustive). Benzodiazepine use is generally not recommended concurrently with pain medications and/or other controlled substances educated on all medications, benefits, side effects and risk, and educated on depression, anxiety, and ADHD, mood d/o and educated on compliance of medications, metabolic and movement d/o education appointment is, continue therapy discussion with patient about course of treatment and patient instructions. education on serotonin syndrome SSRI/SNRI side effects discussed including but not limited to, gastric upset, nausea, vomiting, diarrhea and/or constipation, weight changes, sexual side effects including loss of libido, increased suicidal thoughts/behaviors in children and young adults, and serotonin syndrome. Second generation antipsychotics (SGAs) have metabolic syndrome issues with weight gain, increase in prolactin, increased waist circumference, increased lipids, and increased glucose. Thus routine monitoring of weight, metabolic labs, etc. is indicated. A general rank ordering of antipsychotics that have the greatest to the least risk of metabolic effects is olanzapine, quetiapine, risperidone, ziprasidone, and aripiprazole. However, weight gain can occur with all of these drugs and considerable variability exists among patients receiving the same drug regarding the risk of metabolic effects. Anti-psychotic agents not only increase the risk of metabolic disorder, they also increase the risk of CVA, akathisia, and movement disorders including EPS or tardive dyskinesia (more common with first generation antipsychotics) and more. Medication Management and Follow-Up - Plan: - Schedule follow-up appointments every 1-3 months to monitor the patient's response to the medication regimen. - Reinforce the importance of avoiding recreational drug use due to potential neurotoxicity and interactions with prescribed medications. Plan Of Treatment Future Test Test Name Order Date ADHD Testing 06/01/2024 Insurance Providers Payer Name Payer Address Payer Phone Subscriber Number Group Number Insured Name Patient Relationship to Insured Coverage Start Date Coverage End Date [facility] [address] [place] [address] [id number] Mohinder Rasmussen Self - patient is the insured [facility] [address] [address] [place] [address] [id number] Grady Mohinder Self - patient is the insured Medical (General) History Medical History History ICD Code Anxiety/Depression Obesity Hypothyroidism Mixed HLD HTN Sleep disorder Past Psychiatric History: Anxiety Disord er,Panic Disorder,PTSD abdominal aortic aneurysm: No atrial fibrillation: No chronic fatigue syndrome: No essential tremor: No hyperlipidemia: Yes hypertension: Yes Parkinson's disease: No restless leg syndrome: No stroke: No subdural hematoma: No type 1 diabetes mellitus: No type 2 diabetes mellitus: Yes vitamin B12 deficiency: No vitamin D deficiency: No Surgical History Surgery Date(Month/Year) achilles rupture 2017 Hospitalization History Reason Date(Month/Year) pancreatitis 2018
== END 2025-02-19 06:55 | disposition home or self-care (01) ==
PROVIDERS: PCP Nurse Practitioner Family; Visit Provider Nurse Practitioner Family
DX: M79.18 Myalgia, other site (principal); M54.59 Other low back pain; M25.552 Pain in left hip
CPT/HCPCS: 72148